=== PATIENT | female | born 1975 | race Caucasian/White ===

== ENCOUNTER 2016-12-15 06:24 | Emergency (ER) | payer OTHER ==
[~2016-12-15] VITALS: Ht 157.5 cm; Wt 96.8 kg
[2016-12-15] MEDS ORDERED: ONDANSETRON 4MG/2ML VIAL (J2405) IV ONE (06:45)
[2016-12-15] MEDS ORDERED: KETOROLAC 30 MG/ML VIAL (J1885) IV ONE (06:45)
[2016-12-15] MEDS ORDERED: NS 1,000 ML IV ONE (06:45)
[2016-12-15 07:00] LABS: BASO # 0.1 K/mm3 (0.0-0.2); BASO % 0.6 % (0.0-1.0); EOS # 0.3 K/mm3 (0.0-0.50); EOS % 2.6 % (0.0-3.0); LARGE UNSTAINED CELL # 0.1 K/mm3 (0.0-0.4); LARGE UNSTAINED CELL % 0.6 % (0.0-4.0); LYMPH # 1.1 K/mm3 (1.5-4.5); LYMPH % 9.2 % (24.0-44.0); MEAN CORPUSCULAR HEMOGLOBIN 31.8 pg (27.0-33.0); MEAN CORPUSCULAR HGB CONC 33.9 g/dl (32.0-36.5); MEAN CORPUSCULAR VOLUME 93.6 fl (80.0-96.0); MONO # 0.4 K/mm3 (0.0-0.8); MONO % 3.7 % (0.0-5.0); NEUTROPHILS % 83.1 % (36.0-66.0); PLATELET COUNT, AUTOMATED 278 k/mm3 (150-450); RED CELL DISTRIBUTION WIDTH 12.7 % (11.5-14.5); WHITE BLOOD COUNT 10.8 K/mm3 (4.0-10.0)
[2016-12-15 07:17] LABS: ALBUMIN 3.8 GM/DL (3.2-5.2); ALBUMIN/GLOBULIN RATIO 0.84 (1.00-1.93); ALKALINE PHOSPHATASE 64 U/L (45-117); ALT/SGPT 26 U/L (12-78); AMYLASE 34 U/L (25-115); ANION GAP 10 MEQ/L (8-16); AST/SGOT 12 U/L (15-37); BILIRUBIN,TOTAL 0.3 MG/DL (0.2-1.0); BLOOD UREA NITROGEN 15 MG/DL (7-18); CALCIUM LEVEL 9.1 MG/DL (8.5-10.1); CARBON DIOXIDE LEVEL 23 MEQ/L (21-32); CHLORIDE LEVEL 105 MEQ/L (98-107); CREATININE FOR GFR 0.75 MG/DL (0.55-1.02); GLOMERULAR FILTRATION RATE > 60.0 (>58); GLUCOSE, FASTING 141 MG/DL (70-105); POTASSIUM SERUM 3.5 MEQ/L (3.5-5.1); SODIUM LEVEL 138 MEQ/L (136-145); TOTAL PROTEIN 8.3 GM/DL (6.4-8.2)
[2016-12-15] MEDS ORDERED: METOCLOPRAMIDE INJ 10MG/2ML VIAL (J2765) IV ONE (07:45)
[2016-12-15] MEDS ORDERED: TRIMETHOBENZAMIDE HCL INJ 200 MG/2 ML VIAL (J3250) IM ONE (09:00)
--- NOTE | 2016-12-15 09:21 | REP ---
RIGHT UPPER QUADRANT ULTRASOUND: 12/15/2016 COMPARISON: CT abdomen pelvis 08/14 1012. CLINICAL HISTORY: Abdominal pain, nausea and vomiting. FINDINGS: The liver is homogeneous, appears mildly enlarged and without focal hepatic mass or biliary dilatation. Gallbladder shows small echogenic mobile stones with shadowing. No abnormal wall thickening or pericholecystic fluid. No sludge. No sonographic Stapleton sign. Common duct is 5.2 mm without a filling defect or dilatation. The visualized pancreas unremarkable. The right kidney is 10.6 x 6.9 x 5.2 cm. IMPRESSION: 1. Mild hepatomegaly without focal hepatic mass, biliary dilatation or adjacent ascites. 2. A few small mobile gallstones with shadowing but no sludge, pericholecystic fluid, mass or sonographic Stapleton sign. 3. Common duct 5.2 mm and normal without a filling defect or dilatation. Pancreas and right kidney unremarkable. Signed by Fab Avilez MD 12/15/2016 09:15 P
[2016-12-15] MEDS ORDERED: ZOFR4TAB3 PO (09:53)
[2016-12-15 10:03] VITALS: BP 147/99
[2016-12-15 10:50] LABS: MICROSCOPIC INDICATED? MAN YES (NO)
[2016-12-15 10:56] LABS: CALCIUM OXALATE CRYSTALS,URINE SMALL AMOUNT /hpf; RBC, URINE 0-1 /hpf (0-3)
[2016-12-15 10:57] LABS: BACTERIA, URINE LARGE AMOUNT; MICROSCOPIC EXAM PERFORMED; SQUAMOUS EPITHELIAL CELL URINE SMALL AMOUNT /hpf (SMALL AMT)
== END 2016-12-15 10:04 | disposition home or self-care (01) ==
LOC: M ED 06:24
DX: K80.20 Calculus of gallbladder without cholecystitis without obstruction (principal); R11.2 Nausea with vomiting, unspecified; R19.7 Diarrhea, unspecified; R10.11 Right upper quadrant pain; Z88.7 Allergy status to serum and vaccine
CPT/HCPCS: 76705; 80053; 81000; 81025; 82150; 83690; 85025; 86140; 96361; 96372; 96374; 96375; 99283; J1885; J2405; J2765; J3250

== ENCOUNTER → 2017-06-03 | Outpatient (CLI) | payer OTHER ==
[2017-06-03 10:18] LABS: HEMATOCRIT 41.9 % (36.0-47.0); MEAN CORPUSCULAR HEMOGLOBIN 30.5 pg (27.0-33.0); MEAN CORPUSCULAR HGB CONC 33.4 g/dl (32.0-36.5); MEAN CORPUSCULAR VOLUME 91.3 fl (80.0-96.0); PLATELET COUNT, AUTOMATED 309 10^3/uL (150-450); RED BLOOD COUNT 4.59 10^6/uL (4.00-5.40); RED CELL DISTRIBUTION WIDTH 12.7 % (11.5-14.5); WHITE BLOOD COUNT 8.1 10^3/uL (4.0-10.0)
[2017-06-03 10:57] LABS: ALBUMIN 3.7 GM/DL (3.2-5.2); ALBUMIN/GLOBULIN RATIO 0.86 (1.00-1.93); ALKALINE PHOSPHATASE 65 U/L (45-117); ALT/SGPT 25 U/L (12-78); ANION GAP 7 MEQ/L (8-16); AST/SGOT 19 U/L (7-37); BILIRUBIN,TOTAL 0.6 MG/DL (0.2-1.0); BLOOD UREA NITROGEN 10 MG/DL (7-18); CALCIUM LEVEL 8.9 MG/DL (8.5-10.1); CARBON DIOXIDE LEVEL 28 MEQ/L (21-32); CHLORIDE LEVEL 103 MEQ/L (98-107); CHOLESTEROL LEVEL 228 MG/DL (<200); CHOLESTEROL RISK RATIO 6.909 (<5); CREATININE FOR GFR 0.63 MG/DL (0.55-1.02); GLOMERULAR FILTRATION RATE > 60.0 (>58); GLUCOSE, FASTING 108 MG/DL (70-105); HDL CHOLESTEROL 33 MG/DL (>40); NON-HDL-C 195 MG/DL; POTASSIUM SERUM 3.9 MEQ/L (3.5-5.1); SODIUM LEVEL 138 MEQ/L (136-145); TRIGLYCERIDES LEVEL 185 MG/DL (<150)
[2017-06-03 10:58] LABS: ESTIMATED AVERAGE GLUCOSE 123 MG/DL (60-110); HEMOGLOBIN A1c 5.9 %
[2017-06-03 10:59] LABS: TOTAL 25(OH) VITAMIN D 28.6 NG/ML (30.0-100.0)
== END ==
LOC: M LAB 09:30
DX: I10 Essential (primary) hypertension (principal); R53.83 Other fatigue; E03.9 Hypothyroidism, unspecified
CPT/HCPCS: 71046

== ENCOUNTER 2017-10-03 10:29 | Emergency (ER) | payer OTHER ==
[2017-10-03] MEDS: NS 1,000 ML IV (10:00)
[2017-10-03] MEDS: METOCLOPRAMIDE INJ 10MG/2ML VIAL (J2765) IV (10:01)
[2017-10-03 11:04] LABS: BASO # 0.1 10^3/uL (0.0-0.2); BASO % 0.5 % (0.0-1.0); EOS # 0.1 10^3/uL (0.0-0.50); EOS % 0.5 % (0.0-3.0); HEMATOCRIT 40.5 % (36.0-47.0); HEMOGLOBIN 13.7 g/dl (12.0-15.5); IMMATURE GRANULOCYTE % 0.5 % (0-3.0); LYMPH # 1.1 10^3/uL (1.5-4.5); LYMPH % 8.3 % (24.0-44.0); MEAN CORPUSCULAR HGB CONC 33.8 g/dl (32.0-36.5); MEAN CORPUSCULAR VOLUME 91.6 fl (80.0-96.0); MONO # 0.6 10^3/uL (0.0-0.8); MONO % 4.4 % (0.0-5.0); NEUTROPHILS # 11.4 10^3/uL (1.8-7.7); NEUTROPHILS % 85.8 % (36.0-66.0); PLATELET COUNT, AUTOMATED 285 10^3/uL (150-450); RED BLOOD COUNT 4.42 10^6/uL (4.00-5.40); RED CELL DISTRIBUTION WIDTH 12.5 % (11.5-14.5); WHITE BLOOD COUNT 13.2 10^3/uL (4.0-10.0)
[2017-10-03] MEDS: TRIMETHOBENZAMIDE HCL INJ 200 MG/2 ML VIAL (J3250) IM (11:12)
[2017-10-03 11:35] LABS: ALBUMIN 3.7 GM/DL (3.2-5.2); ALBUMIN/GLOBULIN RATIO 0.88 (1.00-1.93); ALKALINE PHOSPHATASE 62 U/L (45-117); ALT/SGPT 28 U/L (12-78); ANION GAP 8 MEQ/L (8-16); AST/SGOT 14 U/L (7-37); BILIRUBIN,DIRECT < 0.1 MG/DL (0.0-0.2); BILIRUBIN,TOTAL 0.4 MG/DL (0.2-1.0); BLOOD UREA NITROGEN 14 MG/DL (7-18); CALCIUM LEVEL 8.4 MG/DL (8.5-10.1); CARBON DIOXIDE LEVEL 24 MEQ/L (21-32); CHLORIDE LEVEL 106 MEQ/L (98-107); CREATININE FOR GFR 0.68 MG/DL (0.55-1.30); GLOMERULAR FILTRATION RATE > 60.0 (>58); GLUCOSE, FASTING 146 MG/DL (70-100); LIPASE 81 U/L (73-393); POTASSIUM SERUM 3.4 MEQ/L (3.5-5.1); SODIUM LEVEL 138 MEQ/L (136-145); TOTAL PROTEIN 7.9 GM/DL (6.4-8.2)
[2017-10-03 11:37] LABS: KETONE, URINE AUTO RFX 1+ mg/dL (NEGATIVE); LEUKOCYTE ESTERASE UR AUTO RFX NEGATIVE (NEGATIVE); MUCUS, URINE RFX SMALL (NEGATIVE); NITRITE, URINE AUTO RFX NEGATIVE (NEGATIVE); RBC, URINE AUTO RFX 0 /HPF (0-3); SPECIFIC GRAVITY UR AUTO RFX 1.016 (1.002-1.035); SQUAM EPITHELIAL CELL UR AURFX 1 /HPF (0-6); WBC, URINE AUTO RFX 0 /HPF (0-3)
== END 2017-10-03 12:29 | disposition home or self-care (01) ==
LOC: M ED 10:29
DX: K80.70 Calculus of gallbladder and bile duct without cholecystitis without obstruction (principal); E78.5 Hyperlipidemia, unspecified; Z88.7 Allergy status to serum and vaccine; Z88.8 Allergy status to other drugs, medicaments and biological substances; Z79.899 Other long term (current) drug therapy
CPT/HCPCS: J2765

== ENCOUNTER 2017-11-19 14:04 | Emergency (ER) | payer MEDICAID, OTHER | END 2017-11-19 15:37 | disposition home or self-care (01) | LOC: M ED 14:04 | DX: M54.31 Sciatica, right side (principal); G89.29 Other chronic pain; M51.37 Other intervertebral disc degeneration, lumbosacral region; E78.5 Hyperlipidemia, unspecified; J45.909 Unspecified asthma, uncomplicated; F41.9 Anxiety disorder, unspecified; Z88.8 Allergy status to other drugs, medicaments and biological substances; Z88.7 Allergy status to serum and vaccine; Z79.899 Other long term (current) drug therapy | CPT/HCPCS: 99282 ==

== ENCOUNTER → 2018-02-21 | Outpatient (CLI) | payer OTHER ==
[2018-02-21 08:35] LABS: HEMOGLOBIN 12.6 g/dl (12.0-15.5); MEAN CORPUSCULAR HGB CONC 33.2 g/dl (32.0-36.5); MEAN CORPUSCULAR VOLUME 93.6 fl (80.0-96.0); PLATELET COUNT, AUTOMATED 263 10^3/uL (150-450); RED BLOOD COUNT 4.06 10^6/uL (4.00-5.40); RED CELL DISTRIBUTION WIDTH 12.7 % (11.5-14.5); WHITE BLOOD COUNT 5.1 10^3/uL (4.0-10.0)
[2018-02-21 08:46] LABS: INR 0.95; PROTHROMBIN TIME 12.8 SECONDS (12.1-14.4)
[2018-02-21 08:50] LABS: ESTIMATED AVERAGE GLUCOSE 117 MG/DL (60-110); HEMOGLOBIN A1c 5.7 %
[2018-02-21 09:13] LABS: ALBUMIN 3.4 GM/DL (3.2-5.2); ALBUMIN/GLOBULIN RATIO 0.94 (1.00-1.93); ALKALINE PHOSPHATASE 49 U/L (45-117); ALT/SGPT 26 U/L (12-78); ANION GAP 6 MEQ/L (8-16); AST/SGOT 14 U/L (7-37); BILIRUBIN,TOTAL 0.2 MG/DL (0.2-1.0); BLOOD UREA NITROGEN 12 MG/DL (7-18); CALCIUM LEVEL 8.5 MG/DL (8.5-10.1); CARBON DIOXIDE LEVEL 26 MEQ/L (21-32); CHLORIDE LEVEL 109 MEQ/L (98-107); CHOLESTEROL LEVEL 203 MG/DL (<200); CHOLESTEROL RISK RATIO 6.151 (<5); CREATININE FOR GFR 0.54 MG/DL (0.55-1.30); GLOMERULAR FILTRATION RATE > 60.0 (>58); GLUCOSE, FASTING 89 MG/DL (70-100); HDL CHOLESTEROL 33 MG/DL (>40); LDL CHOLESTEROL 139 MG/DL (<100); NON-HDL-C 170 MG/DL; POTASSIUM SERUM 4.6 MEQ/L (3.5-5.1); SODIUM LEVEL 141 MEQ/L (136-145); THYROID STIMULATING HORMONE 0.948 uIU/ML (0.358-3.740); TRIGLYCERIDES LEVEL 157 MG/DL (<150)
== END ==
LOC: M LAB 07:40
DX: Z01.818 Encounter for other preprocedural examination (principal); I10 Essential (primary) hypertension
CPT/HCPCS: 71046

== ENCOUNTER → 2018-07-20 | Outpatient (CLI) | payer OTHER ==
[~2018-07-20] MED LIST: BACL10TA2 PO; HYDR-3716; NORC7.5T35 PO; OXYB5TAB10; SIMV20TA2; VENTAER INH; XANA0.5T PO; ZOFR4TAB14 PO; xanax PO
[2018-07-20 09:54] LABS: HEMATOCRIT 40.6 % (36.0-47.0); HEMOGLOBIN 13.8 g/dl (12.0-15.5); MEAN CORPUSCULAR HEMOGLOBIN 30.7 pg (27.0-33.0); MEAN CORPUSCULAR VOLUME 90.2 fl (80.0-96.0); PLATELET COUNT, AUTOMATED 283 10^3/uL (150-450); WHITE BLOOD COUNT 6.9 10^3/uL (4.0-10.0)
[2018-07-20 12:42] LABS: HEMOGLOBIN A1c 5.9 %
[2018-07-20 13:13] LABS: ALBUMIN 3.6 GM/DL (3.2-5.2); ALT/SGPT 24 U/L (12-78); BILIRUBIN,TOTAL 0.3 MG/DL (0.2-1.0); BLOOD UREA NITROGEN 12 MG/DL (7-18); CARBON DIOXIDE LEVEL 24 MEQ/L (21-32); CHLORIDE LEVEL 106 MEQ/L (98-107); CHOLESTEROL LEVEL 216 MG/DL (<200); CREATININE FOR GFR 0.57 MG/DL (0.55-1.30); GLOMERULAR FILTRATION RATE > 60.0 (>58); GLUCOSE, FASTING 96 MG/DL (70-100); HDL CHOLESTEROL 36 MG/DL (>40); LDL CHOLESTEROL 154 MG/DL (<100); NON-HDL-C 180 MG/DL; POTASSIUM SERUM 4.2 MEQ/L (3.5-5.1); SODIUM LEVEL 140 MEQ/L (136-145); TOTAL 25(OH) VITAMIN D 26.8 NG/ML (30.0-100.0); TOTAL PROTEIN 7.5 GM/DL (6.4-8.2); TRIGLYCERIDES LEVEL 129 MG/DL (<150)
== END ==
LOC: M LAB 08:51
PROVIDERS: ATTEND Family Medicine
DX: E03.9 Hypothyroidism, unspecified (principal); R53.83 Other fatigue

== ENCOUNTER 2018-09-19 13:51 | Emergency (ER) | payer OTHER ==
[~2018-09-19] VITALS: Ht 157.5 cm; Wt 95.5 kg
[~2018-09-19 13:51] MED LIST changes: +NORC1TAB8 PO; -NORC7.5T35 PO
[2018-09-19] MEDS ORDERED: ONDANSETRON 4MG/2ML VIAL (J2405) IV ONE (14:30)
[2018-09-19 14:42] LABS: BASO # 0.1 10^3/uL (0.0-0.2); BASO % 0.4 % (0.0-1.0); EOS % 0.2 % (0.0-3.0); HEMATOCRIT 42.3 % (36.0-47.0); HEMOGLOBIN 14.4 g/dl (12.0-15.5); LYMPH # 0.8 10^3/uL (1.5-4.5); LYMPH % 6.2 % (24.0-44.0); MEAN CORPUSCULAR HEMOGLOBIN 30.5 pg (27.0-33.0); MEAN CORPUSCULAR VOLUME 89.6 fl (80.0-96.0); MONO # 0.3 10^3/uL (0.0-0.8); MONO % 2.4 % (0.0-5.0); NEUTROPHILS # 11.7 10^3/uL (1.8-7.7); NEUTROPHILS % 90.4 % (36.0-66.0); PLATELET COUNT, AUTOMATED 357 10^3/uL (150-450); RED BLOOD COUNT 4.72 10^6/uL (4.00-5.40); WHITE BLOOD COUNT 12.9 10^3/uL (4.0-10.0)
[2018-09-19] MEDS ORDERED: MORPHINE 4 MG/ML 1ML VIAL/SYRINGE (J2270) IV PRN (14:45)
[2018-09-19] MEDS ORDERED: METOCLOPRAMIDE INJ 10MG/2ML VIAL (J2765) IV ONE (15:00)
[2018-09-19 15:03] LABS: ALBUMIN 3.7 GM/DL (3.2-5.2); ALT/SGPT 25 U/L (12-78); AMYLASE 29 U/L (25-115); BILIRUBIN,DIRECT < 0.1 MG/DL (0.0-0.2); BILIRUBIN,TOTAL 0.5 MG/DL (0.2-1.0); BLOOD UREA NITROGEN 13 MG/DL (7-18); CALCIUM LEVEL 8.9 MG/DL (8.5-10.1); CARBON DIOXIDE LEVEL 23 MEQ/L (21-32); CHLORIDE LEVEL 107 MEQ/L (98-107); GLOMERULAR FILTRATION RATE > 60.0 (>58); GLUCOSE, FASTING 132 MG/DL (70-100); LIPASE 64 U/L (73-393); POTASSIUM SERUM 3.7 MEQ/L (3.5-5.1); SODIUM LEVEL 139 MEQ/L (136-145)
[2018-09-19] MEDS ORDERED: TIGA300C2 PO (16:40)
[2018-09-19] MEDS ORDERED: TRIMETHOBENZAMIDE HCL INJ 200 MG/2 ML VIAL (J3250) IM ONE (16:45)
[2018-09-19 17:17] VITALS: BP 172/85
--- NOTE | 2018-09-20 07:26 | REP ---
RIGHT UPPER QUADRANT ULTRASOUND: Real-time sonographic evaluation of the right upper quadrant performed. Multiple small gallstones are seen in the gallbladder. There is no gallbladder wall thickening or pericholecystic fluid. There is no intrahepatic or extrahepatic biliary dilatation, common bile duct measuring 7 mm, at the upper limits of normal. Liver and pancreas demonstrate no gross mass, pancreas not well seen due to patient body habitus and overlying bowel gas. Right kidney demonstrates no hydronephrosis with normal size 11.6 cm in length. IMPRESSION: Small gallstones in the gallbladder without gallbladder wall thickening or free fluid. Common bile duct upper limits of normal 7 mm. Electronically Signed by Virgilio Littlejohn MD 09/20/2018 05:18 P
--- NOTE | 2018-09-20 07:35 | REP ---
ABDOMINAL SERIES: Supine and erect views of the abdomen demonstrate no free air and no compelling evidence for small bowel obstruction. I do not see significantly dilated small bowel loops. Pelvic phleboliths are seen in the inferior aspect of the right pelvis. There are mild degenerative changes of the lower lumbar spine. An accompanying view of the chest demonstrates mild chronic interstitial changes with no acute infiltrate. IMPRESSION: No free air or obstruction. No evidence of acute infiltrate in the chest. Electronically Signed by Virgilio Littlejohn MD 09/20/2018 05:19 P
== END 2018-09-19 17:43 | disposition home or self-care (01) ==
LOC: M ED 13:51
DX: K80.70 Calculus of gallbladder and bile duct without cholecystitis without obstruction (principal); E78.5 Hyperlipidemia, unspecified; Z88.7 Allergy status to serum and vaccine
CPT/HCPCS: 74021; 76705; 80048; 80076; 82150; 83690; 85025; 96372; 96374; 96375; 99284; J2270; J2405; J2765; J3250

== ENCOUNTER 2018-11-18 08:56 | Emergency (ER) | payer OTHER ==
[~2018-11-18] VITALS: Ht 157.5 cm; Wt 93.8 kg
[~2018-11-18 08:56] MED LIST changes: -SIMV20TA2; +SIMV20TA22; +TIGA300C2 PO
[2018-11-18] MEDS ORDERED: ADDE30TA (09:08)
[2018-11-18] MEDS ORDERED: HYDR-643 (09:08)
[2018-11-18] MEDS ORDERED: REGL10TA6 PO (09:08)
[2018-11-18] MEDS ORDERED: ONDANSETRON 4 MG ORAL DISINTEGRATING TAB (Q0162 PER 1MG) PO ONE (09:30)
[2018-11-18 09:36] LABS: BASO # 0.1 10^3/uL (0.0-0.2); BASO % 1.2 % (0.0-1.0); EOS # 0.3 10^3/uL (0.0-0.50); EOS % 4.1 % (0.0-3.0); HEMATOCRIT 38.8 % (36.0-47.0); HEMOGLOBIN 12.9 g/dl (12.0-15.5); LYMPH # 1.6 10^3/uL (1.5-4.5); LYMPH % 24.2 % (24.0-44.0); MEAN CORPUSCULAR HEMOGLOBIN 30.1 pg (27.0-33.0); MEAN CORPUSCULAR HGB CONC 33.2 g/dl (32.0-36.5); MEAN CORPUSCULAR VOLUME 90.4 fl (80.0-96.0); MONO # 0.7 10^3/uL (0.0-0.8); MONO % 11.1 % (0.0-5.0); NEUTROPHILS # 3.8 10^3/uL (1.8-7.7); NEUTROPHILS % 59.1 % (36.0-66.0); PLATELET COUNT, AUTOMATED 298 10^3/uL (150-450); RED BLOOD COUNT 4.29 10^6/uL (4.00-5.40); WHITE BLOOD COUNT 6.4 10^3/uL (4.0-10.0)
--- NOTE | 2018-11-18 09:54 | REP ---
Clinical: Acute abdominal pain. Technique: Littlejohn scale ultrasound using curved array transducer. Findings: Gallbladder includes mobile gallstone without wall thickening or pericholecystic fluid. No sonographic Stapleton's sign elicited. No biliary ductal dilatation is appreciated and the common bile duct measures 2.1 mm diameter. The liver and pancreas are normal in contour, size, and echogenicity without focal hepatic or pancreatic lesions identified. The right kidney is normal in reniform shape without hydronephrosis and measures 11.6 x 5.7 x 5.1 cm. No ascites. Visualized portions of the abdominal aorta normal. Impression: Cholelithiasis without evidence for acute cholecystitis. Electronically Signed by Rohan Prado MD 11/18/2018 09:46 A
[2018-11-18 10:02] LABS: ALBUMIN 3.5 GM/DL (3.2-5.2); ALT/SGPT 26 U/L (12-78); BILIRUBIN,DIRECT 0.1 MG/DL (0.0-0.2); BILIRUBIN,TOTAL 0.5 MG/DL (0.2-1.0); BLOOD UREA NITROGEN 16 MG/DL (7-18); CALCIUM LEVEL 8.6 MG/DL (8.5-10.1); CARBON DIOXIDE LEVEL 26 MEQ/L (21-32); CHLORIDE LEVEL 104 MEQ/L (98-107); CREATININE FOR GFR 0.77 MG/DL (0.55-1.30); GLOMERULAR FILTRATION RATE > 60.0 (>58); GLUCOSE, FASTING 103 MG/DL (70-100); POTASSIUM SERUM 3.8 MEQ/L (3.5-5.1); SODIUM LEVEL 138 MEQ/L (136-145); TOTAL PROTEIN 7.5 GM/DL (6.4-8.2)
[2018-11-18] MEDS ORDERED: PROMETHAZINE INJ 25 MG/ML VIAL (J2550) IM ONE (10:45)
[2018-11-18 10:56] VITALS: BP 175/81
[2018-11-18] MEDS ORDERED: PROM25TA12 PO (11:22)
== END 2018-11-18 11:33 | disposition home or self-care (01) ==
LOC: M ED 08:56
DX: K80.51 Calculus of bile duct without cholangitis or cholecystitis with obstruction (principal); Z79.899 Other long term (current) drug therapy; Z88.7 Allergy status to serum and vaccine
CPT/HCPCS: 36415; 76705; 80048; 80076; 85025; 96372; 99284; Q0162

== ENCOUNTER 2018-12-27 06:13 | Emergency (ER) | payer OTHER ==
[~2018-12-27] VITALS: Ht 157.5 cm; Wt 88.6 kg
[~2018-12-27 06:13] MED LIST changes: +ADDE30TA; +HYDR-643; +PROM25TA12 PO; +REGL10TA6 PO; +SIMV20TA2; -SIMV20TA22
[2018-12-27] MEDS ORDERED: PROMETHAZINE INJ 25 MG/ML VIAL (J2550) IV ONE (07:00)
[2018-12-27] MEDS ORDERED: NS 1,000 ML IV ONE (07:00)
[2018-12-27 07:53] LABS: BASO # 0.1 10^3/uL (0.0-0.2); BASO % 0.6 % (0.0-1.0); EOS # 0.1 10^3/uL (0.0-0.50); EOS % 1.3 % (0.0-3.0); HEMATOCRIT 39.7 % (36.0-47.0); HEMOGLOBIN 13.1 g/dl (12.0-15.5); LYMPH # 0.9 10^3/uL (1.5-4.5); LYMPH % 8.1 % (24.0-44.0); MEAN CORPUSCULAR HEMOGLOBIN 29.4 pg (27.0-33.0); MONO # 0.3 10^3/uL (0.0-0.8); MONO % 2.9 % (0.0-5.0); NEUTROPHILS # 9.1 10^3/uL (1.8-7.7); NEUTROPHILS % 86.8 % (36.0-66.0); PLATELET COUNT, AUTOMATED 319 10^3/uL (150-450); RED BLOOD COUNT 4.46 10^6/uL (4.00-5.40); WHITE BLOOD COUNT 10.5 10^3/uL (4.0-10.0)
[2018-12-27 08:01] LABS: ALBUMIN 3.7 GM/DL (3.2-5.2); ALT/SGPT 24 U/L (12-78); BILIRUBIN,DIRECT < 0.1 MG/DL (0.0-0.2); BILIRUBIN,TOTAL 0.4 MG/DL (0.2-1.0); BLOOD UREA NITROGEN 14 MG/DL (7-18); CALCIUM LEVEL 8.9 MG/DL (8.5-10.1); CARBON DIOXIDE LEVEL 23 MEQ/L (21-32); CHLORIDE LEVEL 107 MEQ/L (98-107); CREATININE FOR GFR 0.78 MG/DL (0.55-1.30); GLOMERULAR FILTRATION RATE > 60.0 (>58); GLUCOSE, FASTING 134 MG/DL (70-100); LIPASE 64 U/L (73-393); POTASSIUM SERUM 4.6 MEQ/L (3.5-5.1); SODIUM LEVEL 140 MEQ/L (136-145); TOTAL PROTEIN 7.6 GM/DL (6.4-8.2)
--- NOTE | 2018-12-27 08:29 | REP ---
Right upper quadrant sonography: History: History of gallstones. Worsening pain. Comparison study November 18, 2018. Findings: Scanning through right upper quadrant is performed. Scan quality incompleteness were inhibited by patient's inability to complete the exam due to extreme nausea. Echogenic foci are seen within the gallbladder consistent with cholelithiasis. No pericholecystic fluid or obvious gallbladder wall thickening is seen. Common bile duct is at the upper range of normal in size measuring 0.7 cm. Limited views of the pancreas show no abnormality. No focal liver lesion is seen. There is no evidence of ascites. Impression: Somewhat limited exam due to nausea. Cholelithiasis again noted. No gallbladder wall thickening or pericholecystic fluid seen. CBD borderline 0.7 cm. Electronically Signed by Mike Kenney MD 12/27/2018 08:20 A
[2018-12-27] MEDS ORDERED: ONDANSETRON 4MG/2ML VIAL (J2405) IV ONE (08:30)
[2018-12-27] MEDS ORDERED: KETOROLAC 30 MG/ML VIAL (J1885) IV ONE (09:30)
[2018-12-27] MEDS ORDERED: HALOPERIDOL 5 MG/ML VIAL (J1630) IV ONE (09:45)
[2018-12-27] MEDS ORDERED: ZOFR8TAB24 PO (10:59)
[2018-12-27 11:09] VITALS: BP 150/82
== END 2018-12-27 11:17 | disposition home or self-care (01) ==
LOC: M ED 06:13
DX: K80.50 Calculus of bile duct without cholangitis or cholecystitis without obstruction (principal); Z87.59 Personal history of other complications of pregnancy, childbirth and the puerperium; K21.9 Gastro-esophageal reflux disease without esophagitis; F90.8 Attention-deficit hyperactivity disorder, other type; Z79.899 Other long term (current) drug therapy; Z88.7 Allergy status to serum and vaccine
CPT/HCPCS: 76705; 80048; 80076; 83690; 85025; 96361; 96374; 96375; 99284; J1630; J1885; J2405

== ENCOUNTER → 2019-04-01 | Day surgery (SDC) | payer OTHER ==
[~2019-04-01] VITALS: Ht 157.5 cm; Wt 91.6 kg
[~2019-04-01] MED LIST changes: +LR 1,000 ML IV ONE; -SIMV20TA2; +SIMV20TA22; +ZOFR8TAB24 PO
[2019-04-01 11:02] VITALS: BP 141/97
--- NOTE | 2019-04-01 12:42 | ECGEPIP ---
[facility] Test Date: 2019-04-01 Pat Name: ALYSSA MICHEL Department: Room: - Gender: Female Yarrow Gatherer: GOOD : 1975 Requested By: SUZETTE Billingsley Order Number: [id number] Reading MD: Jackelyn France Measurements Intervals [place] Rate: 68 P: 6 DC: 197 QRS: 65 QRSD: 93 T: 3 QT: 402 QTc: 430 Interpretive Statements SINUS RHYTHM LOW VOLT PRWP SIMILAR TO 02/21/18 EXCEPT NEW NSSTTWABN E Electronically Signed on 04-01-2019 12:42:21 EST by Jackelyn France
== END | disposition home or self-care (01) ==
LOC: M SDC 10:22
PROVIDERS: ATTEND Surgery
DX: K80.50 Calculus of bile duct without cholangitis or cholecystitis without obstruction (principal); Z53.9 Procedure and treatment not carried out, unspecified reason

== ENCOUNTER 2019-04-11 07:56 | Day surgery (SDC) | payer OTHER ==
[~2019-04-11] VITALS: Ht 157.5 cm; Wt 89.8 kg
[~2019-04-11 07:56] MED LIST changes: +SIMV20TA2; -SIMV20TA22; +ceFAZolin SOD 2 GM in IV 1 EA IV ONE
[2019-04-11] MEDS ORDERED: ALBUTEROL SULFATE 2.5 MG/0.5 ML INH NEB SOLN As Ordered ONE (09:05)
[2019-04-11] MEDS ORDERED: BUPIVACAINE/EPIN 0.25% 30 ML VIAL As Ordered ONE (09:07)
[2019-04-11] MEDS ORDERED: ALBUTEROL SULFATE 2.5 MG/0.5 ML INH NEB SOLN INH ONE (09:15)
[2019-04-11] MEDS ORDERED: fentaNYL 100 MCG/2 ML INJECTION (J3010) As Ordered ONE ×2 (09:31→10:22)
[2019-04-11] MEDS ORDERED: dexameTHASONE 4 MG/ML 1ML VIAL (J1100) As Ordered ONE (09:31)
[2019-04-11] MEDS ORDERED: LIDOCAINE 2% INJ 100 MG/5 ML SDV (FOR ANES.) As Ordered ONE (09:31)
[2019-04-11] MEDS ORDERED: PROPOFOL 200 MG/20 ML VIAL As Ordered ONE (09:31)
[2019-04-11] MEDS ORDERED: MIDAZOLAM INJ 2 MG/2 ML VIAL (J2250) As Ordered ONE (09:31)
[2019-04-11] MEDS ORDERED: ROCURONIUM BROMIDE 50 MG/5 ML VIAL As Ordered ONE (09:31)
[2019-04-11] MEDS ORDERED: HYDROmorphone HCL 2 MG/ML 1ML VIAL (J1170) As Ordered ONE (09:32)
[2019-04-11] MEDS ORDERED: KETOROLAC 60 MG/2 ML VIAL (J1885) As Ordered ONE (09:44)
[2019-04-11] MEDS ORDERED: SUGAMMADEX SODIUM 500 MG/5 ML VIAL (BRIDION) As Ordered ONE (09:44)
[2019-04-11] MEDS ORDERED: ONDANSETRON 4MG/2ML VIAL (J2405) As Ordered ONE ×2 (09:44→10:22)
[2019-04-11] MEDS ORDERED: hydrALAZINE INJ 20 MG/ML VIAL As Ordered ONE (09:46)
[2019-04-11] MEDS: fentaNYL 100 MCG/2 ML INJECTION (J3010) IV PRN ×4 (10:36→11:10)
[2019-04-11] MEDS ORDERED: NORCO, ANEXSIA 5/325MG TABLET (HYDROcodone/ACETAMINOPHEN) PO PRN (10:45)
[2019-04-11] MEDS ORDERED: PERCOCET 5MG/325MG TAB PO PRN (10:45)
[2019-04-11] MEDS ORDERED: ONDANSETRON 4MG/2ML VIAL (J2405) IV PRN (10:45)
[2019-04-11] MEDS ORDERED: HYDROMORPHONE HCL 0.5 MG/ 0.5 ML SYRINGE (J1170 PER 1) IV PRN (10:45)
[2019-04-11] MEDS ORDERED: LR 1,000 ML IV SCH (10:45)
[2019-04-11] MEDS ORDERED: METOCLOPRAMIDE INJ 10MG/2ML VIAL (J2765) As Ordered ONE (11:03)
[2019-04-11] MEDS ORDERED: METOCLOPRAMIDE INJ 10MG/2ML VIAL (J2765) IV ONE (11:15)
[2019-04-11] MEDS ORDERED: PROMETHAZINE INJ 25 MG/ML VIAL (J2550) As Ordered ONE (11:28)
[2019-04-11] MEDS ORDERED: PROMETHAZINE INJ 25 MG/ML VIAL (J2550) IV PRN ×2 (12:00→12:15)
[2019-04-11] MEDS ORDERED: diphenhydrAMINE INJ 50MG/ML VIAL (J1200) As Ordered ONE (13:22)
[2019-04-11 14:00] VITALS: BP 161/88
[2019-04-11] MEDS ORDERED: diphenhydrAMINE INJ 50MG/ML VIAL (J1200) IV ONE (14:00)
[2019-04-11] MEDS ORDERED: MORPHINE 2 MG/ML 1ML VIAL (J2270) IV ONE (14:00)
--- NOTE | 2019-04-12 09:50 | RO ---
DATE OF PROCEDURE: 04/11/2019 PREOPERATIVE DIAGNOSIS: Symptomatic cholelithiasis. POSTOPERATIVE DIAGNOSIS: Symptomatic cholelithiasis with lower midline incisional hernia. PROCEDURE: Laparoscopic cholecystectomy. SURGEON: Dr. Dickson WORKPLACE RELATIONS ADVISER: None. ANESTHESIA: General. ESTIMATED BLOOD LOSS: 5. COMPLICATIONS: None. INDICATIONS FOR PROCEDURE: The patient is a 43-year-old female, who presents with right upper quadrant pain and found (dictation cut off). Recommendation is to proceed with laparoscopic possible open cholecystectomy. Risks and benefits of the procedure not limited but including bleeding, infection, hernia formation, damage to surrounding structures, need for further surgery were discussed in detail with the patient. Informed consent was obtained and procedure was planned. Immediately in preop, she also mentioned a new onset of a right lower quadrant bulge that she has not really noticed in the past and she wanted me to be aware of it prior to surgery. DESCRIPTION OF PROCEDURE: The patient was brought back to operating room #3 and after sufficient sedation the abdomen was sterilely prepped and draped. Next, a time-out was done to confirm proper patient and proper procedure. Following that a 10 mm incision was made in left upper quadrant, Veress needle inserted and the abdomen was insufflated to 50 mmHg. Next, a 5 mm supraumbilical midline incision made and a 5 mm Optiview port was used to gain access to the abdomen. Once the abdomen was entered, Veress needle site was examined and there were no signs of any injury. Veress needle was then removed and replaced with an 11 mm port. Two more 5 mm ports were then placed in the right upper quadrant. The fundus of the gallbladder was elevated up towards the right shoulder. Cystic duct and cystic artery were carefully dissected free. Once they were both clearly identified, they were both doubly clipped and cut. The cystic duct was wide and had some stones in it. Therefore, it was also ligated with a PDS Endoloop. The gallbladder was then removed from gallbladder fossa using electrocautery. Once the gallbladder was removed, the abdomen was examined to confirm hemostasis. The gallbladder was then placed in a 10 mm Endo Catch bag brought out through the subxiphoid port site. The abdomen was then desufflated. Skin incisions were closed with #4-0 Vicryl subcuticular sutures. The abdomen was cleaned and dried. Steri-Strips, 4 x 4, and tape were applied thus ending procedure.
== END 2019-04-11 14:15 | disposition home or self-care (01) ==
LOC: M SDC 07:56
PROVIDERS: ATTEND Surgery
DX: K81.1 Chronic cholecystitis (principal); K43.2 Incisional hernia without obstruction or gangrene; I10 Essential (primary) hypertension; E78.5 Hyperlipidemia, unspecified; F41.9 Anxiety disorder, unspecified; J45.909 Unspecified asthma, uncomplicated; F12.90 Cannabis use, unspecified, uncomplicated; Z88.7 Allergy status to serum and vaccine; Z88.8 Allergy status to other drugs, medicaments and biological substances; Z79.899 Other long term (current) drug therapy; Z98.51 Tubal ligation status

== ENCOUNTER → 2019-07-19 | Outpatient (CLI) | payer OTHER ==
[~2019-07-19] MED LIST changes: -LR 1,000 ML IV ONE; -SIMV20TA2; +SIMV20TA22; -ceFAZolin SOD 2 GM in IV 1 EA IV ONE
--- NOTE | 2019-07-19 10:13 | REP ---
LUMBOSACRAL SPINE SERIES: Five views of the lumbosacral spine are performed. No compression fracture or malalignment is seen. There is normal lumbar lordosis. There is mild disc space narrowing at L4-5 and L5-S1 with sclerosis at the facets at both of those levels as well as mild spurring. Posterior elements are intact. Metallic clips are seen in the right upper quadrant. IMPRESSION: Mild degenerative changes L4-5 and L5-S1. Electronically Signed by Virgilio Littlejohn MD 07/19/2019 07:51 P
== END ==
LOC: M RAD 08:52 → M LAB 08:52
PROVIDERS: ATTEND Family Medicine
DX: M54.5 Low back pain (principal)

== ENCOUNTER 2019-09-26 00:42 | Emergency (ER) | payer OTHER ==
[~2019-09-26] VITALS: Ht 157.5 cm; Wt 95.5 kg
[2019-09-26 01:23] LABS: BASO % 0.2 % (0.0-1.0); HEMATOCRIT 40.3 % (36.0-47.0); HEMOGLOBIN 13.3 g/dl (12.0-15.5); LYMPH % 8.2 % (24.0-44.0); MEAN CORPUSCULAR HEMOGLOBIN 29.7 pg (27.0-33.0); MONO # 0.3 10^3/uL (0.0-0.8); MONO % 2.5 % (0.0-5.0); NEUTROPHILS # 10.3 10^3/uL (1.5-8.5); NEUTROPHILS % 88.8 % (36.0-66.0); PLATELET COUNT, AUTOMATED 342 10^3/uL (150-450); RED BLOOD COUNT 4.48 10^6/uL (4.00-5.40); WHITE BLOOD COUNT 11.6 10^3/uL (4.0-10.0)
[2019-09-26] MEDS ORDERED: PROMETHAZINE INJ 25 MG/ML VIAL (J2550) IV ONE (01:30)
[2019-09-26 01:53] LABS: ALBUMIN 3.6 GM/DL (3.2-5.2); BILIRUBIN,DIRECT 0.1 MG/DL (0.0-0.2); BILIRUBIN,TOTAL 0.5 MG/DL (0.2-1.0); TOTAL PROTEIN 8.2 GM/DL (6.4-8.2)
[2019-09-26] MEDS ORDERED: PROM25SU PR (02:42)
[2019-09-26 02:53] VITALS: BP 149/79
[2019-09-27] MEDS ORDERED: PROT1TAB2 PO (10:07)
== END 2019-09-26 02:55 | disposition home or self-care (01) ==
LOC: M ED 00:42
DX: R11.10 Vomiting, unspecified (principal); G89.29 Other chronic pain; Z79.899 Other long term (current) drug therapy; Z88.7 Allergy status to serum and vaccine; F12.20 Cannabis dependence, uncomplicated

== ENCOUNTER 2019-09-27 06:53 | Emergency (ER) | payer OTHER ==
[~2019-09-27] VITALS: Ht 157.5 cm; Wt 99.2 kg
[~2019-09-27 06:53] MED LIST changes: +PROM25SU PR
[2019-09-27] MEDS ORDERED: CAPSAICIN 0.025% CR 60 GM TOP ONE ×2 (07:30→08:00)
[2019-09-27] MEDS ORDERED: PROMETHAZINE INJ 25 MG/ML VIAL (J2550) IM ONE (07:30)
[2019-09-27] MEDS ORDERED: ONDANSETRON 4 MG ORAL DISINTEGRATING TAB PO ONE (08:45)
[2019-09-27] MEDS ORDERED: GI COCKTAIL 50ML BTL(HYOSCYAMINE/MAALOX/LIDOCAINE VISCOUS)(1:3:1) PO ONE (08:45)
[2019-09-27] MEDS ORDERED: HALOPERIDOL 5MG/ML VIAL (J1630 PER 1) IV ONE (09:15)
[2019-09-27] MEDS ORDERED: NS 1,000 ML IV ONE (09:15)
[2019-09-27 09:25] LABS: BASO # 0.1 10^3/uL (0.0-0.2); BASO % 0.7 % (0.0-1.0); EOS % 0.2 % (0.0-3.0); HEMATOCRIT 40.6 % (36.0-47.0); LYMPH # 1.2 10^3/uL (1.5-5.0); MEAN CORPUSCULAR HGB CONC 34.5 g/dl (32.0-36.5); MEAN CORPUSCULAR VOLUME 89.8 fl (80.0-96.0); MONO # 0.3 10^3/uL (0.0-0.8); MONO % 3.6 % (0.0-5.0); NEUTROPHILS % 83.2 % (36.0-66.0); PLATELET COUNT, AUTOMATED 332 10^3/uL (150-450); RED BLOOD COUNT 4.52 10^6/uL (4.00-5.40); WHITE BLOOD COUNT 9.6 10^3/uL (4.0-10.0)
[2019-09-27] MEDS ORDERED: PANTOPRAZOLE 40MG VIAL (C9113 PER 1) IV ONE (09:30)
[2019-09-27] MEDS ORDERED: PROT1TAB2 PO (10:07)
[2019-09-27 10:11] VITALS: BP 163/97
== END 2019-09-27 10:12 | disposition home or self-care (01) ==
LOC: M ED 06:53
DX: T40.7X1A Poisoning by cannabis (derivatives), accidental (unintentional), initial encounter (principal); R11.2 Nausea with vomiting, unspecified; K29.70 Gastritis, unspecified, without bleeding; F41.9 Anxiety disorder, unspecified; F90.9 Attention-deficit hyperactivity disorder, unspecified type; Z79.899 Other long term (current) drug therapy
CPT/HCPCS: 80047; 85025; 96372; 96374; 96375; 99284; C9113; J1630; Q0162

== ENCOUNTER 2019-12-05 06:59 | Emergency (ER) | payer OTHER ==
[~2019-12-05] VITALS: Ht 157.5 cm; Wt 99.1 kg
[~2019-12-05 06:59] MED LIST changes: +PROT1TAB2 PO
[2019-12-05] MEDS ORDERED: LISI10TA4 (07:07)
[2019-12-05] MEDS ORDERED: MELO7.5T35 (07:07)
[2019-12-05] MEDS ORDERED: SIMV20TA22 (07:07)
[2019-12-05] MEDS ORDERED: HYDR-3716 (07:07)
[2019-12-05] MEDS ORDERED: METOCLOPRAMIDE INJ 10MG/2ML VIAL (J2765 PER 1) As Ordered ONE (07:28)
[2019-12-05] MEDS ORDERED: METOCLOPRAMIDE INJ 10MG/2ML VIAL (J2765 PER 1) IV ONE (07:45)
[2019-12-05] MEDS ORDERED: NS 1,000 ML IV ONE (07:45)
[2019-12-05 07:52] LABS: BASO # 0.1 10^3/uL (0.0-0.2); BASO % 0.4 % (0.0-1.0); EOS % 0.1 % (0.0-3.0); HEMATOCRIT 39.9 % (36.0-47.0); HEMOGLOBIN 13.1 g/dl (12.0-15.5); LYMPH # 0.9 10^3/uL (1.5-5.0); LYMPH % 6.5 % (24.0-44.0); MEAN CORPUSCULAR HEMOGLOBIN 29.5 pg (27.0-33.0); MEAN CORPUSCULAR HGB CONC 32.8 g/dl (32.0-36.5); MEAN CORPUSCULAR VOLUME 89.9 fl (80.0-96.0); MONO # 0.3 10^3/uL (0.0-0.8); NEUTROPHILS # 12.5 10^3/uL (1.5-8.5); NEUTROPHILS % 90.7 % (36.0-66.0); PLATELET COUNT, AUTOMATED 310 10^3/uL (150-450); RED BLOOD COUNT 4.44 10^6/uL (4.00-5.40); WHITE BLOOD COUNT 13.8 10^3/uL (4.0-10.0)
[2019-12-05] MEDS ORDERED: ONDANSETRON 4MG/2ML VIAL IV ONE (08:15)
[2019-12-05 08:16] LABS: ALBUMIN 3.6 GM/DL (3.2-5.2); BILIRUBIN,DIRECT 0.1 MG/DL (0.0-0.2); BILIRUBIN,TOTAL 0.5 MG/DL (0.2-1.0); TOTAL PROTEIN 7.6 GM/DL (6.4-8.2)
--- NOTE | 2019-12-05 09:21 | REP ---
Clinical: Abdominal pain. Technique: Upright view of the chest with supine and upright views of the abdomen and pelvis. Findings: Frontal upright view of the chest demonstrates no acute cardiopulmonary process or free air below the diaphragm to suspect pneumoperitoneum. Supine and upright views of the abdomen and pelvis demonstrate nonspecific bowel gas pattern without obstruction or perforation. No organomegaly. No abnormal calcifications. Skeletal structures normal for age. Evidence of prior cholecystectomy. Impression: Nonspecific bowel gas pattern. Electronically Signed by Rohan Prado MD 12/05/2019 09:11 A
[2019-12-05] MEDS ORDERED: HALOPERIDOL 5MG/ML VIAL (J1630 PER 1) IV ONE (09:30)
[2019-12-05] MEDS ORDERED: lisinopriL 10 MG TAB PO ONE (09:30)
[2019-12-05] MEDS ORDERED: ONDA4TAB6 PO (10:25)
[2019-12-05 10:35] VITALS: BP 148/98
[2019-12-05 10:48] LABS: AMPHETAMINES LEVEL URINE NEGATIVE (NEGATIVE); BARBITURATES URINE NEGATIVE (NEGATIVE); BENZODIAZEPINES URINE NEGATIVE (NEGATIVE); CANNABINOIDS URINE POSITIVE (NEGATIVE); COCAINE METABOLITE URINE NEGATIVE (NEGATIVE); METHADONE URINE NEGATIVE (NEGATIVE); OPIATES URINE NEGATIVE (NEGATIVE); PHENCYCLIDINE URINE NEGATIVE (NEGATIVE)
== END 2019-12-05 10:36 | disposition home or self-care (01) ==
LOC: M ED 06:59
DX: T40.7X1A Poisoning by cannabis (derivatives), accidental (unintentional), initial encounter (principal); R11.2 Nausea with vomiting, unspecified; Y92.098 Other place in other non-institutional residence as the place of occurrence of the external cause; F41.9 Anxiety disorder, unspecified; Z88.7 Allergy status to serum and vaccine; Z79.899 Other long term (current) drug therapy
CPT/HCPCS: 74021; 80047; 80076; 80307; 83690; 84702; 85025; 96361; 96374; 96375; 99283; J1630; J2405; J2765

== ENCOUNTER 2020-07-14 05:01 | Emergency (ER) | payer OTHER ==
[~2020-07-14] VITALS: Ht 157.5 cm; Wt 95.0 kg
[~2020-07-14 05:01] MED LIST changes: +LISI10TA22; +MELO7.5T35; +ONDA4TAB6 PO
[2020-07-14 05:03] VITALS: BP 164/77
--- OUTSIDE RECORDS SUMMARY | 2020-07-14 05:06 | CCD ---
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 Care Production Manager Name Role Phone Radhas, M Wanda FOOD AND BEVERAGE CASHIER Unavailable Unavailable Fons, M Wanda FOOD AND BEVERAGE CASHIER Unavailable Unavailable Fons, M Wanda FOOD AND BEVERAGE CASHIER Unavailable Unavailable Fons, M Wanda FOOD AND BEVERAGE CASHIER Unavailable Unavailable Fons, M Wanda FOOD AND BEVERAGE CASHIER Unavailable Unavailable Fons, M Wanda FOOD AND BEVERAGE CASHIER Unavailable Unavailable Fons, M Wanda FOOD AND BEVERAGE CASHIER Unavailable Unavailable Fons, M Wanda FOOD AND BEVERAGE CASHIER Unavailable Unavailable Fons, M Wanda FOOD AND BEVERAGE CASHIER Unavailable Unavailable Fons, M Wanda FOOD AND BEVERAGE CASHIER Unavailable Unavailable Fons, M Wanda FOOD AND BEVERAGE CASHIER Unavailable Unavailable Fons, M Wanda FOOD AND BEVERAGE CASHIER Unavailable Unavailable Fons, M Wanda FOOD AND BEVERAGE CASHIER Unavailable Unavailable Fons, M Wanda FOOD AND BEVERAGE CASHIER Unavailable Unavailable Fons, M Wanda FOOD AND BEVERAGE CASHIER Unavailable Unavailable Fons, M Wanda FOOD AND BEVERAGE CASHIER Unavailable Unavailable Fons, M Wanda FOOD AND BEVERAGE CASHIER Unavailable Unavailable Fons, M Wanda FOOD AND BEVERAGE CASHIER Unavailable Unavailable Fons, M Wanda FOOD AND BEVERAGE CASHIER Unavailable Unavailable Fons, M Wanda FOOD AND BEVERAGE CASHIER Unavailable Unavailable Fons, M Wanda FOOD AND BEVERAGE CASHIER Unavailable Unavailable Fons, M Wanda FOOD AND BEVERAGE CASHIER Unavailable Unavailable Fons, M Wanda FOOD AND BEVERAGE CASHIER Unavailable Unavailable Fons, M Wanda FOOD AND BEVERAGE CASHIER Unavailable Unavailable Fons, M Wanda FOOD AND BEVERAGE CASHIER Unavailable Unavailable Fons, M Wanda FOOD AND BEVERAGE CASHIER Unavailable Unavailable Fons, M Wanda FOOD AND BEVERAGE CASHIER Unavailable Unavailable Fons, M Wanda FOOD AND BEVERAGE CASHIER Unavailable Unavailable Fons, M Wanda FOOD AND BEVERAGE CASHIER Unavailable Unavailable Fons, M Wanda FOOD AND BEVERAGE CASHIER Unavailable Unavailable Fons, M Wanda FOOD AND BEVERAGE CASHIER Unavailable Unavailable Fons, M Wanda FOOD AND BEVERAGE CASHIER Unavailable Unavailable Fons, M Wanda FOOD AND BEVERAGE CASHIER Unavailable Unavailable Fons, M Wanda FOOD AND BEVERAGE CASHIER Unavailable Unavailable Fons, M Wanda FOOD AND BEVERAGE CASHIER Unavailable Unavailable Fons, M Wanda FOOD AND BEVERAGE CASHIER Unavailable Unavailable Fons, M Wanda FOOD AND BEVERAGE CASHIER Unavailable Unavailable Fons, M Wanda FOOD AND BEVERAGE CASHIER Unavailable Unavailable Fons, M Wanda FOOD AND BEVERAGE CASHIER Unavailable Unavailable Fons, M Wanda FOOD AND BEVERAGE CASHIER Unavailable Unavailable Fons, M Wanda FOOD AND BEVERAGE CASHIER Unavailable Unavailable Fons, M Wanda FOOD AND BEVERAGE CASHIER Unavailable Unavailable Fons, M Wanda FOOD AND BEVERAGE CASHIER Unavailable Unavailable Fons, M Wanda FOOD AND BEVERAGE CASHIER Unavailable Unavailable Fons, M Wanda FOOD AND BEVERAGE CASHIER Unavailable Unavailable Fons, M Wanda FOOD AND BEVERAGE CASHIER Unavailable Unavailable Fons, M Wanda FOOD AND BEVERAGE CASHIER Unavailable Unavailable Fons, M Wanda FOOD AND BEVERAGE CASHIER Unavailable Unavailable Fons, M Wanda FOOD AND BEVERAGE CASHIER Unavailable Unavailable Fons, M [place] FOOD AND BEVERAGE CASHIER Unavailable Unavailable Fons, M Wanda FOOD AND BEVERAGE CASHIER Unavailable Unavailable Fons, M Wanda FOOD AND BEVERAGE CASHIER Unavailable Unavailable Fons, M Wanda FOOD AND BEVERAGE CASHIER Unavailable Unavailable Fons, M Wanda FOOD AND BEVERAGE CASHIER Unavailable Unavailable Fons, M Wanda FOOD AND BEVERAGE CASHIER Unavailable Unavailable Dille, E Neelam DDS Unavailable Unavailable Dille, E Neelam DDS Unavailable Unavailable Dille, E Neelam DDS Unavailable Unavailable Dille, E Neelam DDS Unavailable Unavailable Re-disclosure Warning The records that you are about to access may contain information from federally-assisted alcohol or drug abuse programs. If such information is present, then the following federally mandated warning applies: This information has been disclosed to you from records protected by federal confidentiality rules (42 CFR part 2). The federal rules prohibit you from making any further disclosure of this information unless further disclosure is expressly permitted by the written consent of the person to whom it pertains or as otherwise permitted by 42 CFR part 2. A general authorization for the release of medical or other information is NOT sufficient for this purpose. The Federal rules restrict any use of the information to criminally investigate or prosecute any alcohol or drug abuse patient.The records that you are about to access may contain highly sensitive health information, the redisclosure of which is protected by Article 27-F of the [facility] Public Health law. If you continue you may have access to information: Regarding HIV / AIDS; Provided by facilities licensed or operated by the [facility] Office of Mental Health; or Provided by the [facility] Office for People With Developmental Disabilities. If such information is present, then the following [facility] mandated warning applies: This information has been disclosed to you from confidential records which are protected by state law. State law prohibits you from making any further disclosure of this information without the specific written consent of the person to whom it pertains, or as otherwise permitted by law. Any unauthorized further disclosure in violation of state law may result in a fine or nursing home sentence or both. A general authorization for the release of medical or other information is NOT sufficient authorization for further disc losure. Family History Family Member Name Family Member Gender Family Member Status Date o f Status Description Data Source(s) Unknown Male Problem MEDENT ([facility]) Unknown Male Problem MED[facility] ([facility] Encounters Encounter Providers Location Date Indications Data Source(s ) Outpatient Attender: Neelam Miranda DDS FP 08/24/2019 09:01:02 P Tammi GALVAN [facility] Outpatient Referrer: Wanda ROMANP 07/21/2019 03:09:00 PM [facility] Insurance Providers Payer name Policy type / Coverage type Policy ID Covered republican ID Covered republican's relationship to miramontes Policy Mir[place]es Plan Information [employer]AN MCDHMO [id number] SP [id number] Managed Care - [facility] Community Plan P [id number] S [id number] Medicaid S [id number] S [id number] [facility]([place]) O [id number] S [id number] [employer] COMMUNITY PLAN MCDHMO [id number] SP [id number] Managed Care - [facility] Community Plan P [id number] S [id number] Managed Care - Community Plan [employer] P [id number] S [id number] MEDICAID [id number] SP [id number] [facility] Health Maintenance Organization (HMO) [id number] Self [id number] [facility] Community Plan Commercial [id number] Self [id number] Managed Care - Community Plan United [employer] P [id number] S [id number] Medicaid S [id number] S [id number] [employer] COMMUNITY PLAN MCDHMO [id number] SP [id number] UNHC COMMUNITY PLAN MCDHMO [id number] SP [id number] D Managed Care [facility] P [id number] S [id number] Medicaid Dental S [id number] S [id number] UNHC COMMUNITY PLAN MCDHMO [id number] SP [id number] HMO BLUE [id number] SP [id number] Managed Care [facility] P [id number] S [id number] Results ID Date Data Source [id number] 05/26/2020 12:00:00 AM EST [facility] Name Value Range Interpretation Code Description Data Yessica rce(s) Supporting Document(s) Carestart Rapid COVID Antigen Test Negative [facility] This lab was reported by Christiano lizama. ID Date Data Source [id number] 05/26/2020 12:00:00 AM EST [facility] Name Value Range Interpretation Code Description Data Yessica rce(s) Supporting Document(s) SARS coronavirus 2 RNA [Presence] in Res piratory specimen by LONNIE with probe detection NEGATIVE [facility] This lab was ordered by Christiano Jones and reported by [facility]. Procedure
[2020-07-14] MEDS ORDERED: TRAM50TA2 (05:12)
--- OUTSIDE RECORDS SUMMARY | 2020-07-14 05:49 | CCD ---
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 Care Photographic Press Screwmaker Name Role Phone Radhas, M Wanda APPLIANCE FIXER Unavailable Unavailable Fons, M Wanda APPLIANCE FIXER Unavailable Unavailable Fons, M Wanda APPLIANCE FIXER Unavailable Unavailable Fons, M Wanda APPLIANCE FIXER Unavailable Unavailable Fons, M Wanda APPLIANCE FIXER Unavailable Unavailable Fons, M Wanda APPLIANCE FIXER Unavailable Unavailable Fons, M Wanda APPLIANCE FIXER Unavailable Unavailable Fons, M Wanda APPLIANCE FIXER Unavailable Unavailable Fons, M Wanda APPLIANCE FIXER Unavailable Unavailable Fons, M Wanda APPLIANCE FIXER Unavailable Unavailable Fons, M Wanda APPLIANCE FIXER Unavailable Unavailable Fons, M Wanda APPLIANCE FIXER Unavailable Unavailable Fons, M Wanda APPLIANCE FIXER Unavailable Unavailable Fons, M Wanda APPLIANCE FIXER Unavailable Unavailable Fons, M Wanda APPLIANCE FIXER Unavailable Unavailable Fons, M Wanda APPLIANCE FIXER Unavailable Unavailable Fons, M Wanda APPLIANCE FIXER Unavailable Unavailable Fons, M Wanda APPLIANCE FIXER Unavailable Unavailable Fons, M Wanda APPLIANCE FIXER Unavailable Unavailable Fons, M Wanda APPLIANCE FIXER Unavailable Unavailable Fons, M Wanda APPLIANCE FIXER Unavailable Unavailable Fons, M Wanda APPLIANCE FIXER Unavailable Unavailable Fons, M Wanda APPLIANCE FIXER Unavailable Unavailable Fons, M Wanda APPLIANCE FIXER Unavailable Unavailable Fons, M Wanda APPLIANCE FIXER Unavailable Unavailable Fons, M Wanda APPLIANCE FIXER Unavailable Unavailable Fons, M Wanda APPLIANCE FIXER Unavailable Unavailable Fons, M Wanda APPLIANCE FIXER Unavailable Unavailable Fons, M Wanda APPLIANCE FIXER Unavailable Unavailable Fons, M Wanda APPLIANCE FIXER Unavailable Unavailable Fons, M Wanda APPLIANCE FIXER Unavailable Unavailable Fons, M Wanda APPLIANCE FIXER Unavailable Unavailable Fons, M Wanda APPLIANCE FIXER Unavailable Unavailable Fons, M Wanda APPLIANCE FIXER Unavailable Unavailable Fons, M Wanda APPLIANCE FIXER Unavailable Unavailable Fons, M Wanda APPLIANCE FIXER Unavailable Unavailable Fons, M Wanda APPLIANCE FIXER Unavailable Unavailable Fons, M Wanda APPLIANCE FIXER Unavailable Unavailable Fons, M Wanda APPLIANCE FIXER Unavailable Unavailable Fons, M Wanda APPLIANCE FIXER Unavailable Unavailable Fons, M Wanda APPLIANCE FIXER Unavailable Unavailable Fons, M Wanda APPLIANCE FIXER Unavailable Unavailable Fons, M Wanda APPLIANCE FIXER Unavailable Unavailable Fons, M Wanda APPLIANCE FIXER Unavailable Unavailable Fons, M Wanda APPLIANCE FIXER Unavailable Unavailable Fons, M Wanda APPLIANCE FIXER Unavailable Unavailable Fons, M Wanda APPLIANCE FIXER Unavailable Unavailable Fons, M Wanda APPLIANCE FIXER Unavailable Unavailable Fons, M Wanda APPLIANCE FIXER Unavailable Unavailable Fons, M Wanda APPLIANCE FIXER Unavailable Unavailable Fons, M Wanda APPLIANCE FIXER Unavailable Unavailable Fons, M Wanda APPLIANCE FIXER Unavailable Unavailable Fons, M Wanda APPLIANCE FIXER Unavailable Unavailable Fons, M Wanda APPLIANCE FIXER Unavailable Unavailable Fons, M Wanda APPLIANCE FIXER Unavailable Unavailable Dille, E Neelam DDS Unavailable [...] is protected by Article 27-F of the [facility] Public Health law. If you continue you may have access to information: Regarding HIV / AIDS; Provided by facilities licensed or operated by the [facility] Office of Mental Health; or Provided by the [facility] Office for People With Developmental Disabilities. If such information is present, then the following [facility] mandated warning applies: This information has [...] law may result in a fine or alf sentence or both. A general authorization for the release of medical or other information is NOT sufficient authorization for further disc losure. Family History Family Member Name Family Member Gender Family Member Status Date o f Status Description Data Source(s) Unknown Male Problem MEDENT ([facility]) Unknown Male Problem MED[facility] ([facility]) Encounters Encounter Providers Location Date Indications Data Source(s ) Outpatient Attender: Neelam Miranda DDS FP 08/24/2019 09:01:02 P Tammi GALVAN [facility] Outpatient Referrer: Wanda ROMANP 07/21/2019 03:09:00 PM [facility] Insurance Providers Payer name Policy type / Coverage type Policy ID Covered alliance party ID Covered alliance party's relationship to miramontes Policy [place] Plan Information [employer] COMMUNITY PLAN MCDHMO [id number] SP [id number] Managed Care - [facility] Community Plan P [id number] S [id number] Medicaid S [id number] S [id number] [facility]([place]ID) O [id number] S [id number] [employer] COMMUNITY PLAN MCDHMO [id number] SP [id number] Managed Care - [facility] Community Plan P [id number] S [id number] Managed Care - Community Plan [employer] P [id number] S [id number] MEDICAID [id number] SP [id number] [facility] Health Maintenance Organization (HMO) [id number] Self [id number] [facility] Community Plan Commercial [id number] Self [id number] Managed Care - Community Plan United [employer] P [id number] S [id number] Medicaid S [id number] S [id number] [employer]HC COMMUNITY PLAN MCDHMO [id number] SP [id number] UNHC COMMUNITY PLAN MCDHMO [id number] SP [id number] D Managed Care [facility] P [id number] S [id number] Medicaid Dental S [id number] S [id number] [employer]HC COMMUNITY PLAN MCDHMO [id number] SP [id number] HMO BLUE [id number] SP [id number] D Managed Care [facility] P [id number] S [id number] Results ID Date Data Source [id number] 05/26/2020 12:00:00 AM EST [facility] Name Value Range Interpretation Code Description Data Ysesica rce(s) Supporting Document(s) Carestart Rapid COVID Antigen Test Negative [facility] This lab was reported by Christiano lizama. ID Date Data Source [id number] 05/26/2020 12:00:00 AM EST [facility] Name Value Range Interpretation Code Description Data Yessica rce(s) Supporting Document(s) SARS coronavirus 2 RNA [Presence] in Res piratory specimen by LONNIE with probe detection NEGATIVE [facility] This lab was ordered by Christiano Jones and reported by [facility]. Procedure
== END 2020-07-14 05:34 | disposition left against medical advice (07) ==
LOC: M ED 05:01
DX: Z53.21 Procedure and treatment not carried out due to patient leaving prior to being seen by health care provider (principal)

== ENCOUNTER 2020-08-26 09:44 | Emergency (ER) | payer OTHER ==
[~2020-08-26] VITALS: Ht 157.5 cm; Wt 97.8 kg
[~2020-08-26 09:44] MED LIST changes: +TRAM50TA2
[2020-08-26] MEDS ORDERED: SUCR1TAB56 (10:00)
[2020-08-26] MEDS ORDERED: ROBA750T4 PO (11:34)
[2020-08-26] MEDS ORDERED: KETOROLAC 60MG 2ML VIAL IM ONE (11:35)
[2020-08-26] MEDS ORDERED: KETO10TAB PO (11:35)
[2020-08-26] MEDS ORDERED: LIDOCAINE 5% (LIDODERM) PATCH TD ONE (11:35)
[2020-08-26] MEDS ORDERED: LIDO5DIS41 TOP (11:36)
[2020-08-26 11:49] VITALS: BP 148/88
[2020-08-26 12:10] VITALS: BP 144/78
[2020-08-26] MEDS ORDERED: **NOTE PATIENT COMMENT** MISC XX SCH (21:00)
== END 2020-08-26 12:17 | disposition home or self-care (01) ==
LOC: M ED 09:44
DX: M54.5 Low back pain (principal); I10 Essential (primary) hypertension; E78.5 Hyperlipidemia, unspecified; J45.909 Unspecified asthma, uncomplicated; F41.9 Anxiety disorder, unspecified; F12.188 Cannabis abuse with other cannabis-induced disorder; F17.200 Nicotine dependence, unspecified, uncomplicated; Z88.7 Allergy status to serum and vaccine; Z79.899 Other long term (current) drug therapy
CPT/HCPCS: 96372; 99283; J1885

== ENCOUNTER → 2020-09-03 | Outpatient (CLI) | payer OTHER ==
[~2020-09-03] MED LIST changes: +KETO10TAB PO; +LIDO5DIS41 TOP; +ROBA750T4 PO; +SUCR1TAB56
--- NOTE | 2020-09-03 16:38 | REP ---
INDICATION: SCIATICA COMPARISON: 08/20/2012 TECHNIQUE: AP, lateral, bilateral oblique, and coned-down views of the lumbar spine. FINDINGS: Alignment and lordosis maintained. Vertebral bodies are intact. No acute fracture/compression injury or subluxation. No obvious spondylolysis or spondylolisthesis. Mild degenerative changes include endplate sclerosis with minimal disc space narrowing at L4-5 and L5-S1 along with mild associated facet hypertrophy. IMPRESSION: Mild degenerative changes at L4-5 and L5-S1 suggested. <Electronically signed by Rohan Prado > 09/03/20 1739
== END ==
LOC: M RAD 16:11
PROVIDERS: ATTEND Family Medicine
DX: M54.30 Sciatica, unspecified side (principal)

== ENCOUNTER 2020-09-05 00:24 | Emergency (ER) | payer OTHER ==
[~2020-09-05] VITALS: Ht 157.5 cm; Wt 95.1 kg
[2020-09-05 03:09] LABS: BASO % 0.3 % (0.0-1.0); EOS % 0.1 % (0.0-3.0); HEMATOCRIT 38.3 % (36.0-47.0); HEMOGLOBIN 12.5 g/dl (12.0-15.5); LYMPH # 0.9 10^3/uL (1.5-5.0); LYMPH % 6.5 % (24.0-44.0); MEAN CORPUSCULAR HEMOGLOBIN 27.8 pg (27.0-33.0); MEAN CORPUSCULAR HGB CONC 32.6 g/dl (32.0-36.5); MEAN CORPUSCULAR VOLUME 85.1 fl (80.0-96.0); MONO # 0.3 10^3/uL (0.0-0.8); MONO % 1.8 % (2.0-8.0); NEUTROPHILS % 90.9 % (36.0-66.0); PLATELET COUNT, AUTOMATED 370 10^3/uL (150-450); WHITE BLOOD COUNT 14.2 10^3/uL (4.0-10.0)
[2020-09-05 03:33] LABS: ALBUMIN 3.9 GM/DL (3.2-5.2); BILIRUBIN,DIRECT 0.1 MG/DL (0.0-0.2); BILIRUBIN,TOTAL 0.5 MG/DL (0.2-1.0); TOTAL PROTEIN 8.5 GM/DL (6.4-8.2)
[2020-09-05] MEDS: NS 1,000 ML IV ONE (04:39)
[2020-09-05] MEDS: HALOPERIDOL 5MG/ML VIAL (J1630 PER 1) IV ONE (04:39)
[2020-09-05 06:21] VITALS: BP 136/78
== END 2020-09-05 06:23 | disposition home or self-care (01) ==
LOC: M ED 00:24
DX: F12.288 Cannabis dependence with other cannabis-induced disorder (principal); R11.10 Vomiting, unspecified; I10 Essential (primary) hypertension; F90.9 Attention-deficit hyperactivity disorder, unspecified type; Z98.890 Other specified postprocedural states; Z88.7 Allergy status to serum and vaccine
CPT/HCPCS: 80047; 80076; 83690; 84702; 85025; 93041; 96374; 99284; J1630

== ENCOUNTER → 2020-09-25 | Outpatient (REF) | payer OTHER ==
[2020-09-25 17:36] LABS: FREE T4 1.09 NG/DL (0.76-1.46); THYROID STIMULATING HORMONE 0.946 uIU/ML (0.358-3.740)
[2020-09-25 17:39] LABS: LUTEINIZING HORMONE 13.1 mIU/mL
[2020-09-25 17:40] LABS: FOLLICLE STIMULATING HORMONE 9.4 mIU/mL
== END ==
LOC: M LAB REF 16:27
PROVIDERS: ATTEND Obstetrics & Gynecology
DX: N92.1 Excessive and frequent menstruation with irregular cycle (principal)

== ENCOUNTER → 2020-12-14 | Outpatient (CLI) | payer OTHER | LOC: M LABSMTC 11:14 | PROVIDERS: ATTEND Anesthesiology | DX: Z01.812 Encounter for preprocedural laboratory examination (principal); Z20.822 Contact with and (suspected) exposure to COVID-19 ==

== ENCOUNTER → 2020-12-14 | Outpatient (CLI) | payer OTHER ==
--- NOTE | 2020-12-15 09:32 | ECGEPIP ---
[facility] Test Date: 2020-12-14 Pat Name: ALYSSA MICHEL Department: Room: - Gender: Female [place]: lana : 1975 Requested By: Rai Cheung Order Number: [id number] Reading MD: Eric Woody Measurements Intervals [place] Rate: 87 P: 27 ID: [id number] QRS: 67 QRSD: 82 T: 5 QT: 376 QTc: 452 Interpretive Statements Normal sinus rhythm Poor R wave progression BORDERLINE LOW VOLTAGE THROUGHOUT Compared to prior tracings in the system. No remarkable changes Electronically Signed on 12-15-2020 9:31:55 EDT by Eric Woody
== END ==
LOC: M EKG 11:53
PROVIDERS: ATTEND Anesthesiology
DX: Z01.812 Encounter for preprocedural laboratory examination (principal); I10 Essential (primary) hypertension

== ENCOUNTER 2020-12-19 06:09 | Day surgery (SDC) | payer OTHER ==
[2020-12-19] VITALS (7 sets, daily range): BP systolic 133–155; BP diastolic 86–99
[~2020-12-19] VITALS: Ht 157.5 cm; Wt 96.1 kg
[~2020-12-19 06:09] MED LIST changes: +ceFAZolin SOD 2 GM in IV 1 EA IV ONE
[2020-12-19] MEDS ORDERED: ceFAZolin 2 GM/D5W 50 ML IV BAG (J0690 PER 500MG) As Ordered ONE (06:29)
[2020-12-19 06:54] LABS: HEMATOCRIT 36.5 % (36.0-47.0); HEMOGLOBIN 11.7 g/dl (12.0-15.5); MEAN CORPUSCULAR HGB CONC 32.1 g/dl (32.0-36.5); MEAN CORPUSCULAR VOLUME 87.3 fl (80.0-96.0); PLATELET COUNT, AUTOMATED 305 10^3/uL (150-450); RED BLOOD COUNT 4.18 10^6/uL (4.00-5.40); WHITE BLOOD COUNT 7.1 10^3/uL (4.0-10.0)
[2020-12-19] MEDS ORDERED: LR 1,000 ML IV ONE (07:10)
[2020-12-19 07:13] LABS: BLOOD UREA NITROGEN 15 MG/DL (7-18); CALCIUM LEVEL 8.7 MG/DL (8.5-10.1); CARBON DIOXIDE LEVEL 28 MEQ/L (21-32); CHLORIDE LEVEL 104 MEQ/L (98-107); CREATININE FOR GFR 0.68 MG/DL (0.55-1.30); GLOMERULAR FILTRATION RATE > 60.0 (>58); GLUCOSE, FASTING 104 MG/DL (70-100); POTASSIUM SERUM 3.7 MEQ/L (3.5-5.1); SODIUM LEVEL 138 MEQ/L (136-145)
[2020-12-19] MEDS ORDERED: SCOPOLAMINE 1MG TRANSDERMAL PATCH TOP ONE (07:15)
[2020-12-19] MEDS ORDERED: FLUORESCEIN 10% (100MG/ML) 5 ML VIAL As Ordered ONE (07:15)
[2020-12-19] MEDS ORDERED: BUPIVACAINE/EPIN 0.25% 30 ML VIAL As Ordered ONE (07:15)
[2020-12-19] MEDS ORDERED: HYDROmorphone HCL 2 MG/ML 1ML VIAL (J1170) As Ordered ONE (08:05)
[2020-12-19] MEDS ORDERED: ONDANSETRON 4MG/2ML VIAL As Ordered ONE (08:05)
[2020-12-19] MEDS ORDERED: fentaNYL 100 MCG/2 ML INJECTION (J3010) As Ordered ONE (08:05)
[2020-12-19] MEDS ORDERED: dexameTHASONE 4 MG/ML 1ML VIAL (J1100 PER 1MG) As Ordered ONE (08:05)
[2020-12-19] MEDS ORDERED: LIDOCAINE 2% 100MG/5ML SDV (FOR ANES.) As Ordered ONE (08:05)
[2020-12-19] MEDS ORDERED: KETOROLAC 60MG 2ML VIAL As Ordered ONE (08:05)
[2020-12-19] MEDS ORDERED: METOCLOPRAMIDE INJ 10MG/2ML VIAL (J2765 PER 1) As Ordered ONE (08:05)
[2020-12-19] MEDS ORDERED: ROCURONIUM BROMIDE 50 MG/5 ML VIAL As Ordered ONE ×2 (08:05→08:06)
[2020-12-19] MEDS ORDERED: propofoL 200 MG/20 ML VIAL As Ordered ONE ×2 (08:05→10:37)
[2020-12-19] MEDS ORDERED: MIDAZOLAM INJ 2MG/2ML VIAL (J2250 PER 1MG) As Ordered ONE (08:05)
[2020-12-19] MEDS ORDERED: SUGAMMADEX SODIUM 500 MG/5 ML VIAL (BRIDION) As Ordered ONE (08:06)
[2020-12-19] MEDS ORDERED: PHENYLephrine 500MCG 5ML (100MCG/ML) SYRINGE As Ordered ONE (08:11)
[2020-12-19] MEDS ORDERED: LABETALOL 100MG/20ML VIAL As Ordered ONE (08:52)
[2020-12-19] MEDS ORDERED: hydrALAZINE 20MG/ML 1ML VIAL (J0360 PER 20MG) As Ordered ONE (08:52)
[2020-12-19] MEDS ORDERED: fentaNYL 100 MCG/2 ML INJECTION (J3010) IV PRN (11:00)
[2020-12-19] MEDS ORDERED: LR 1,000 ML IV SCH (11:00)
[2020-12-19] MEDS ORDERED: ONDANSETRON 4MG/2ML VIAL IV PRN (11:00)
[2020-12-19] MEDS ORDERED: oxyCODONE 5MG TAB PO PRN (11:00)
[2020-12-19] MEDS: HYDROMORPHONE HCL 0.5 MG/ 0.5 ML SYRINGE (J1170 PER 1) IV PRN ×2 (13:56→14:01)
[2020-12-19] MEDS: IBUPROFEN 800 MG TAB PO SCH (18:25)
[2020-12-19] MEDS: PERCOCET 5MG/325MG TAB PO PRN (19:36)
[2020-12-20] MEDS: IBUPROFEN 800 MG TAB PO SCH ×2 (00:16→05:59)
[2020-12-20] MEDS: PERCOCET 5MG/325MG TAB PO PRN ×2 (01:45→08:38)
[2020-12-20 05:59] VITALS: BP 157/103
--- NOTE | 2020-12-20 11:05 | RO ---
OPERATIVE NOTE DATE OF OPERATION: 12/19/2020 INDICATIONS: Susan Styles is a 45-year-old female with history of excessive menstruation and two enlarged fibroid uterus. After extensive counseling the decision was made to proceed with robotic-assisted total hysterectomy, removal of both tubes. PREOPERATIVE DIAGNOSES: 1. Extensive menstruation. 2. Enlarged fibroid uterus. POSTOPERATIVE DIAGNOSES: 1. Extensive menstruation. 2. Enlarged fibroid uterus. 3. Extensive omental and bowel adhesions and adhesions to the lower uterine segment from the bladder. PROCEDURES: 1. Robotic-assisted total hysterectomy. 2. Removal of both tubes. 3. Cystoscopy. 4. Extensive lysis of adhesions. SURGEON: Ayden Randolph DO PRODUCTION SCHEDULER: ANESTHESIA: General. COMPLICATIONS: None. ESTIMATED BLOOD LOSS: 200 mL. FINDINGS: Enlarged fibroid uterus with dense omental bowel and bladder adhesions. Normal appearing ovaries. DESCRIPTION OF PROCEDURE: After obtaining informed consent the patient was taken to the operating room where general anesthesia was found to be adequate. She was then prepped and draped in usual sterile fashion in the dorsal lithotomy position. At this point a Medina catheter was placed in the bladder for drainage. HUMI II uterine manipulator was placed. Attention was then turned to the abdomen where a Veress needle was inserted at the umbilicus and the abdomen was insufflated with CO2 gas to approximately 3.5 liters. We then placed an 8 mm supraumbilical incision for the robotic camera port and then two left 8 mm lateral ports were placed, for robotic arm 1 and the assist port and on the right an 8 mm lateral port was placed for robotic arm 2. At this point, the patient was placed in steep Trendelenburg. The robot was brought to the patient's right side and docked in the usual fashion. After proper docking we then performed targeting test. After passing the targeting test the remaining robotic arm 1 and 2 were then docked. After docking the arms Endo Onelia were placed in robotic arm 1 and bipolar grasper in 2. I then went to the surgical console. I began by performing lysis of adhesions. The bladder, omentum as well as pelvic sidewall were found to be adherent. With series of careful blunt and sharp dissection these adhesions were taken down careful not to injure the bladder or the ureter. After taking down the adhesions and freeing up the adnexa, the Endo Onelia were removed. Vessel sealer was placed and the fallopian tube as well as uteroovarian ligament were transected and cut. This was taken all the way down to the uterosacral ligament on each side. After securing both uterine arteries I then removed the vessel sealer, reintroduced the Endo Onelia and anterior and posterior colpotomy was performed. Given the size of the uterus were not able to remove the uterus through the vagina without bivalving the uterus. Using large curved Dela Cruz scissors the uterus was bivalved and we were able to remove the uterus as well as the fallopian tubes and the fibroids through the vagina. A moistened sponge lap was placed in the vagina to maintain pneumoperitoneum. I then went over again to the surgical console and closed the vaginal cuff using 2-0 V-Loc suture. Pelvis was copiously irrigated with normal saline. 1 mL of fluorescein was given by the anesthesiologist to help with the cystoscopy. I then rescrubbed and went to the patient's side. I retrogradely filled the bladder to 230 mL of fluid. The Medina catheter was removed. The cystoscope was inserted. Bilateral ureteral jets noted, no evidence of any bladder injury noted. At this point the cystoscope was removed. The Medina catheter was placed back in the bladder. I then undocked the robot and the robotic ports were closed using 3-0 Vicryl in a subcuticular fashion. 0.25% Marcaine was placed for postoperative pain, Dermabond placed. The patient tolerated the procedure well. She was then transferred to recovery room in stable condition. cc: [facility]
== END 2020-12-20 10:45 | disposition home or self-care (01) ==
LOC: M SDC 06:09 → M MS5PR 14:20 → M SDC 12-20 10:45
PROVIDERS: ATTEND Obstetrics & Gynecology
DX: D25.9 Leiomyoma of uterus, unspecified (principal); N72 Inflammatory disease of cervix uteri; N85.2 Hypertrophy of uterus; K66.0 Peritoneal adhesions (postprocedural) (postinfection); I10 Essential (primary) hypertension; F90.9 Attention-deficit hyperactivity disorder, unspecified type; E78.00 Pure hypercholesterolemia, unspecified; F41.9 Anxiety disorder, unspecified; J45.909 Unspecified asthma, uncomplicated; R06.83 Snoring; Z87.891 Personal history of nicotine dependence; Z88.7 Allergy status to serum and vaccine; Z79.899 Other long term (current) drug therapy
CPT/HCPCS: 36415; 58571; 80048; 85027; 86850; 86900; 86901; 88307; J0360; J0690; J1100; J1170; J1885; J2250; J2370; J2405; J2765; J3010; S2900

== ENCOUNTER 2021-03-31 09:23 | Emergency (ER) | payer OTHER ==
[~2021-03-31] VITALS: Ht 157.5 cm; Wt 98.9 kg
[~2021-03-31 09:23] MED LIST changes: -ceFAZolin SOD 2 GM in IV 1 EA IV ONE
[2021-03-31] MEDS ORDERED: LISI10TA22 PO (09:28)
--- OUTSIDE RECORDS SUMMARY | 2021-03-31 09:32 | CCD ---
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 Name Role Phone Maring, Waqar PA Unavailable Unavailable Maring, Waqar PA Unavailable Unavailable Maring, Waqar PA Unavailable Unavailable Maring, Waqar PA Unavailable Unavailable Maring, Waqar PA Unavailable Unavailable Maring, Waqar PA Unavailable Unavailable Maring, Waqar PA Unavailable Unavailable Maring, Waqar PA Unavailable Unavailable Maring, Waqar PA Unavailable Unavailable Maring, Waqar PA Unavailable Unavailable Maring, Waqar PA Unavailable Unavailable Maring, Waqar PA Unavailable Unavailable Maring, Waqar PA Unavailable Unavailable Maring, Waqar PA Unavailable Unavailable Maring, Waqar PA Unavailable Unavailable Maring, Waqar PA Unavailable Unavailable Feola, T Vianca PA Unavailable Unavailable Feola, T Vianca PA Unavailable Unavailable Feola, T Vianca PA Unavailable Unavailable Feola, T Vianca PA Unavailable Unavailable Feola, T Vianca PA Unavailable Unavailable Feola, T Vianca PA Unavailable Unavailable Feola, T Vianca PA Unavailable Unavailable Feola, T Vianca PA Unavailable Unavailable Feola, T Vianca PA Unavailable Unavailable Feola, T Vianca PA Unavailable Unavailable Feola, T Vianca PA Unavailable Unavailable Feola, T Vianca PA Unavailable Unavailable Feola, T Vianca PA Unavailable Unavailable Feola, T Vianca PA Unavailable Unavailable Feola, T Vianca PA Unavailable Unavailable Feola, T Vianca PA Unavailable Unavailable Feola, T Vianca PA Unavailable Unavailable Feola, T Vianca PA Unavailable Unavailable Feola, T Vianca PA Unavailable Unavailable Feola, T Vianca PA Unavailable Unavailable Feola, T Vianca PA Unavailable Unavailable Feola, T Vianca PA Unavailable Unavailable Feola, T Vianca PA Unavailable Unavailable Feola, T Vianca PA Unavailable Unavailable Feola, T Vianca PA Unavailable Unavailable Feola, T Vianca PA Unavailable Unavailable Feola, T Vianca PA Unavailable Unavailable Feola, T Vianca PA Unavailable Unavailable Feola, T Vianca PA Unavailable Unavailable Feola, T Vianca PA Unavailable Unavailable Feola, T Vianca PA Unavailable Unavailable Feola, T Vianca PA Unavailable Unavailable Feola, T Vianca PA Unavailable Unavailable Feola, T Vianca PA Unavailable Unavailable Feola, T Vianca PA Unavailable Unavailable Feola, T Vianca PA Unavailable Unavailable Feola, T Vianca PA Unavailable Unavailable Feola, T Vianca PA Unavailable Unavailable Feola, T Vianca PA Unavailable Unavailable Feola, T Vianca PA Unavailable Unavailable Feola, T Vianca PA Unavailable Unavailable Re-disclosure Warning The records that [...] is protected by Article 27-F of the [facility] Public Health law. If you continue you may have access to information: Regarding HIV / AIDS; Provided by facilities licensed or operated by the [facility] Office of Mental Health; or Provided by the [facility] Office for People With Developmental Disabilities. If such information is present, then the following [facility] mandated warning applies: This information has been [...] law may result in a fine or half-way sentence or both. A general authorization for the release of medical or other information is NOT sufficient authorization for further disc losure. Family History Family Member Name Family Member Gender Family Member Status Date o f Status Description Data Source(s) Unknown Male Problem [facility]ENT ([facility]) Unknown Male Problem [facility] ([facility]) Encounters Encounter Providers Location Date Indications Data Source(s ) Outpatient Attender: Waqar SMITH 10/31/19 10:14:44 AM EDT - 10/30/2020 11:17:09 AM EDT [facility] ([facility] ) Outpatient Attender: Vianca SMITH 021 08:34:33 AM EDT - 10/28/2020 09:39:05 AM EDT [facility] ([facility] ) Outpatient Attender: Waqar SMITH 07/14/19 08:21:40 AM EST - 07/14/2020 09:10:33 AM EST [facility] ([facility] ) Medications Medication Brand Name Start Date Product Form Dose Route Admi nistrative Instructions Pharmacy Instructions Status Indications Reaction Description Data Source(s) Amphetamine aspartate 7.5 MG / Amphetami ne Sulfate 7.5 MG / Dextroamphetamine saccharate 7.5 MG / Dextroamphetamine Sulfate 7.5 MG Oral Tablet 30 mg DEXTROAMPHETAMINE/AMPHETAMINE 03/13/2021 12:00:00 AM EDT tablet 60 TAKE ONE TABLET BY MOUTH TWO TIMES A DAY MAXIMUM DAILY DOSE = 2 TAKE ONE TABLET BY MOUTH TWO TIMES A DAY MAXIMUM DAILY DOSE = 2 SOLD: 03/13/2021 [facility] 500 mg 03/13/2021 12:00:00 AM EDT capsule 40 TAKE ONE CAPSULE BY MOUTH FOUR TIMES A DAY TAKE ONE CAPSULE BY MOUTH FOUR TIMES A DAY SOLD: 03/13/2021 [facility] 50 mg 03/13/2021 12:00:00 AM EDT tablet 30 TAKE ONE TABLET BY MOUTH AT BEDTIME MAXIMUM DAILY DOSE = 1 TAKE ONE TABLET BY MOUTH AT BEDTIME MAXI MUM DAILY DOSE = 1 SOLD: 03/13/2021 [facility] Amphetamine aspartate 7.5 MG / Amphetami ne Sulfate 7.5 MG / Dextroamphetamine saccharate 7.5 MG / Dextroamphetamine Sulfate 7.5 MG Oral Tablet 30 mg DEXTROAMPHETAMINE/AMPHETAMINE 02/09/2021 12:00:00 AM EDT tablet 60 TAKE ONE TABLET BY MOUTH TWICE A DAY MAXIMUM DAILY DOSE = TWO TABLETS TAKE ONE TABLET BY MOUTH TWICE A DAY MAXIMUM DAILY DOSE = TWO TABLETS SOLD: 02/11/2021 [facility] 50 mg 02/09/2021 12:00:00 AM EDT tablet 30 TAKE ONE TABLET BY MOUTH AT BEDTIME MAXIMUM DAILY DOSE = ONE TABLET TAKE ONE TABLET BY MOUTH AT BEDTIME MAXIMUM DAILY DOSE = ONE TABLET SOLD: 02/11/2021 [facility] 10 mg 01/30/2021 12:00:00 AM EDT tablet 30 TAKE ONE TABLET BY MOUTH AT BEDTIME MAXIMUM DAILY DOSE = 1 TAKE ONE TABLET BY MOUTH AT BEDTIME MAXI MUM DAILY DOSE = 1 SOLD: 01/30/2021 [facility] 800 mg 01/30/2021 12:00:00 AM EDT tablet 90 TAKE ONE TABLET BY MOUTH THREE TIMES A DAY TAKE ONE TABLET BY MOUTH THREE TIMES A DAY SOLD: 01/30/2021 [facility] 90 mcg/actuation 01/30/2021 12:00:00 AM EDT HFA aerosol inha ler 18 INHALE TWO PUFFS BY MOUTH FOUR TIMES A DAY INHALE TWO PUFFS BY MOUTH FOUR TIMES A DAY SOLD: 01/30/2021 [facility] 800 mg 10/30/2020 12:00:00 AM EDT tablet 15 TAKE ONE TABLET BY MOUTH THREE TIMES A DAY FOR 5 DAYS TAKE ONE TABLET BY MOUTH THREE TIMES A DAY FOR 5 DAYS SOLD: 11/11/2020 [facility] 4 mg 10/28/2020 12:00:00 AM EDT tablet 15 TAKE ONE TABLET BY MOUTH THREE TIMES A DAY FOR 5 DAYS TAKE ONE TABLET BY MOUTH THREE TIMES A DAY FOR 5 DAYS SOLD: 10/28/2020 [facility] 10 mg 10/28/2020 12:00:00 AM EDT tablet 30 TAKE ONE TABLET BY MOUTH THREE TIMES A DAY NEEDED FOR NAUSEA FOR 10 DAYS TAKE ONE TABLET BY MOUTH THREE TIMES A DAY NEEDED FOR NAUSEA FOR 10 DAYS SOLD: 10/28/2020 [facility] 30 mg 10/11/2020 12:00:00 AM EDT tablet 60 TAKE ONE TABLET BY MOUTH TWO TIMES A DAY MAXIMUM DAILY DOSE = 2 TABLETS TAKE ONE TABLET BY MOUTH TWO TIMES A DAY MAXIMUM DAILY DOSE = 2 TABLETS SOLD: 10/11/2020 [facility] 10 mg 09/29/2020 12:00:00 AM EDT tablet 90 TAKE ONE TABLET BY MOUTH EVERY DAY TAKE ONE TABLET BY MOUTH EVERY DAY SOLD: 10/11/2020 [facility] 50 mg 09/29/2020 12:00:00 AM EDT tablet 30 TAKE ONE TABLET BY MOUTH AT BEDTIME MAXIMUM DAILY DOSE = 1 TABLET TAKE ONE TABLET BY MOUTH AT BEDTIME MAXIMUM DAILY DOSE = 1 TABLET SOLD: 10/11/2020 [facility] Insurance Providers Payer name Policy type / Coverage type Policy ID Covered republican ID Covered republican's relationship to miramontes Policy Miramontes Plan Information D Managed Care [facility] P [id number] S [id number] [facility] Community Plan Commercial [id number] Self [id number] Medicaid Dental S [id number] S [id number] Medicaid S [id number] S [id number] Managed Care - Community Plan [facility] P [id number] S [id number] [facility] COMMUNITY PLAN [facility] [id number] SP [id number] Managed Care - [facility] Community Plan P [id number] S [id number] Managed Care - Community Plan [facility] P [id number] S [id number] Managed Care - [facility] Community Plan P [id number] S [id number] [facility] COMMUNITY PLAN [facility] [id number] SP [id number] [facility] Commercial Insurance Co. [id number] Self [id number] Medicaid Medicaid [id number] Self [id number] [facility] O [id number] S [id number] MEDICAID [id number] SP [id number] [facility] Health Maintenance Organization (HMO) [id number] Self [id number] Medicaid S [id number] S [id number] [employer] COMMUNITY PLAN MCDHMO [id number] SP [id number] UN[employer] COMMUNITY PLAN MCDHMO [id number] SP [id number] UN[employer] COMMUNITY PLAN MCDHMO [id number] SP [id number] O BLUE [id number] SP [id number] Managed Care [facility] P [id number] S [id number] [employer] COMMUNITY PLAN MCDHMO [id number] SP [id number] Problems, Conditions, and Diagnoses No Information Surgeries/Procedures No Information Results ID Date Data Source [id number] 12/14/2020 09:55:00 AM EDT [facility] Name Value Range Interpretation Code Description Data Yessica rce(s) Supporting Document(s) SARS-CoV-2 (COVID-19) RNA [Presence] in Respiratory specimen by LONNIE with probe detection Not Detected [facility] This lab was ordered by [facility] and reported by [facility]. ID Date Data Source [id number] 05/26/2020 12:00:00 AM EST [facility] Name Value Range Interpretation Code Description Data Yessica rce(s) Supporting Document(s) Carestart Rapid COVID Antigen Test Negative [facility] This lab was reported by [facility]. ID Date Data Source [id number] 05/26/2020 12:00:00 AM EST [facility] Name Value Range Interpretation Code Description Data Yessica rce(s) Supporting Document(s) SARS coronavirus 2 RNA [Presence] in Res piratory specimen by LONNIE with probe detection NEGATIVE [facility] This lab was ordered by [facility] and reported by [facility]. Procedure Social History No Information
[2021-03-31] MEDS ORDERED: ONDANSETRON 4MG/2ML VIAL IV ONE (09:35)
[2021-03-31] MEDS ORDERED: NS 1,000 ML IV ONE (09:35)
[2021-03-31 09:56] LABS: BASO % 0.3 % (0.0-1.0); HEMATOCRIT 41.5 % (36.0-47.0); HEMOGLOBIN 13.7 g/dl (12.0-15.5); LYMPH # 0.6 10^3/uL (1.5-5.0); LYMPH % 4.3 % (24.0-44.0); MEAN CORPUSCULAR HEMOGLOBIN 28.2 pg (27.0-33.0); MEAN CORPUSCULAR VOLUME 85.6 fl (80.0-96.0); MONO # 0.2 10^3/uL (0.0-0.8); MONO % 1.2 % (2.0-8.0); NEUTROPHILS # 12.8 10^3/uL (1.5-8.5); NEUTROPHILS % 93.9 % (36.0-66.0); PLATELET COUNT, AUTOMATED 350 10^3/uL (150-450); RED BLOOD COUNT 4.85 10^6/uL (4.00-5.40); WHITE BLOOD COUNT 13.6 10^3/uL (4.0-10.0)
[2021-03-31 10:24] LABS: ALBUMIN 3.7 GM/DL (3.2-5.2); ALT/SGPT 24 U/L (12-78); BILIRUBIN,DIRECT 0.1 MG/DL (0.0-0.2); BILIRUBIN,TOTAL 0.6 MG/DL (0.2-1.0); BLOOD UREA NITROGEN 16 MG/DL (7-18); CALCIUM LEVEL 9.3 MG/DL (8.5-10.1); CARBON DIOXIDE LEVEL 21 MEQ/L (21-32); CHLORIDE LEVEL 104 MEQ/L (98-107); GLOMERULAR FILTRATION RATE > 60.0 (>58); GLUCOSE, FASTING 162 MG/DL (70-100); LIPASE 55 U/L (73-393); SODIUM LEVEL 135 MEQ/L (136-145); TOTAL PROTEIN 8.1 GM/DL (6.4-8.2)
--- OUTSIDE RECORDS SUMMARY | 2021-03-31 10:30 | CCD ---
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 Care Management Aide Name Role Phone Maring, Waqar PA Unavailable [...] is protected by Article 27-F of the [facility] Public Health law. If you continue you may have access to information: Regarding HIV / AIDS; Provided by facilities licensed or operated by the [facility] Office of Mental Health; or Provided by the [facility] Office for People With Developmental Disabilities. If such information is present, then the following [facility] mandated warning applies: This information has [...] Description Data Source(s) Unknown Male Problem [facility] ([facility]) Unknown Male Problem [facility] ([facility]) Encounters Encounter Providers Location Date Indications Data Source(s ) Outpatient Attender: Waqar SMITH 10/31/19 10:14:44 AM EDT - 10/30/2020 11:17:09 AM EDT [facility] ([facility] ) Outpatient Attender: Vianca SMITH 021 08:34:33 AM EDT - 10/28/2020 09:39:05 AM EDT [facility] ([facility] ) Outpatient Attender: Waqar SMITH 07/14/19 08:21:40 AM EST - 07/14/2020 09:10:33 AM EST [facility] ([facility] ) Medications Medication Brand Name [...] MOUTH THREE TIMES A DAY SOLD: 01/30/2021 [facility] 90 mcg/actuation 01/30/2021 12:00:00 AM EDT [...] type / Coverage type Policy ID Covered constitution party ID Covered constitution party's relationship to miramontes Policy Miramontes Plan Information D Managed Care [facility] P [id number] S [id number] [facility] Community Plan Commercial [id number] Self [id number] Medicaid S [id number] S [id number] Medicaid Dental S [id number] S [id number] Managed Care - Community Plan [facility] P [id number] S [id number] [facility] COMM[facility] [id number] SP [id number] Managed Care - [facility] Community Plan P [id number] S [id number] Managed Care - Community Plan [facility] P [id number] S [id number] [facility] COMMUNITY PLAN [facility] [id number] SP [id number] Managed Care - [facility] Community Plan P [id number] S [id number] [facility] Commercial Insurance Co. [id number] Self [id number] Medicaid Medicaid [id number] Self [id number] [facility]) O [id number] S [id number] Medicaid S [id number] S [id number] UN COMMUNITY PLAN MCDO [id number] SP [id number] UN COMMUNITY PLAN MCDO [id number] SP [id number] UN COMMUNITY PLAN MCDO [id number] SP [id number] UN COMMUNITY PLAN MCDO [id number] SP [id number] [facility] BLUE [id number] SP [id number] D [facility] [id number] S [id number] MEDICAID [id number] SP [id number] [facility] Health Maintenance Organization (HMO) [id number] Self [id number] Problems, Conditions, and Diagnoses No Information Surgeries/Procedures No Information Results ID Date Data Source [id number] 12/14/2020 09:55:00 AM EDT [facility] Name Value Range Interpretation Code Description Data Yessica rce(s) Supporting Document(s) SARS-CoV-2 (COVID-19) RNA [Presence] in Respiratory specimen by LONNIE with probe detection Not Detected [facility] This lab was ordered by [facility] and reported by [employer]. ID Date Data Source [id number] 05/26/2020 12:00:00 AM EST [facility] Name Value Range Interpretation Code Description Data Yessica rce(s) Supporting Document(s) Carestart Rapid COVID Antigen Test Negative [facility] This lab was reported by [facility]. ID Date Data Source [id number] 05/26/2020 12:00:00 AM EST [facility] Name Value Range Interpretation Code Description Data Yessica rce(s) Supporting Document(s) SARS coronavirus 2 RNA [Presence] in Res piratory specimen by LONNIE with probe detection NEGATIVE [facility] This lab was ordered by Christiano Parikh [place] and reported by [facility]. Procedure Social History No Information
[2021-03-31 10:42] VITALS: BP 139/94
[2021-03-31 12:01] LABS: AMPHETAMINES LEVEL URINE NEGATIVE (NEGATIVE); BARBITURATES URINE NEGATIVE (NEGATIVE); BENZODIAZEPINES URINE NEGATIVE (NEGATIVE); CANNABINOIDS URINE POSITIVE (NEGATIVE); COCAINE METABOLITE URINE NEGATIVE (NEGATIVE); METHADONE URINE NEGATIVE (NEGATIVE); OPIATES URINE NEGATIVE (NEGATIVE); PHENCYCLIDINE URINE NEGATIVE (NEGATIVE)
== END 2021-03-31 10:45 | disposition home or self-care (01) ==
LOC: M ED 09:23
DX: F12.188 Cannabis abuse with other cannabis-induced disorder (principal); I10 Essential (primary) hypertension; E78.5 Hyperlipidemia, unspecified; J45.909 Unspecified asthma, uncomplicated; G89.29 Other chronic pain; M54.50 Low back pain, unspecified; F41.9 Anxiety disorder, unspecified; Z88.7 Allergy status to serum and vaccine; Z79.899 Other long term (current) drug therapy
CPT/HCPCS: 80048; 80076; 80307; 83690; 85025; 96374; 99284; J2405

== ENCOUNTER → 2022-01-30 | Outpatient (CLI) | payer OTHER ==
[~2022-01-30] MED LIST changes: +GASTROGRAFIN SOLUTION 30ML (Q9963) As Ordered ONE; +ISOVUE-370 76% 100ML VIAL As Ordered ONE; +LISI10TA22 PO
== END ==
LOC: M RAD 08:30
PROVIDERS: ATTEND Surgery
DX: K43.0 Incisional hernia with obstruction, without gangrene (principal)
CPT/HCPCS: 74178; Q9963; Q9967

== ENCOUNTER → 2022-04-02 | Outpatient (CLI) | payer OTHER ==
[~2022-04-02] MED LIST changes: -GASTROGRAFIN SOLUTION 30ML (Q9963) As Ordered ONE; -ISOVUE-370 76% 100ML VIAL As Ordered ONE
[2022-04-02 13:04] LABS: HEMATOCRIT 40.6 % (36.0-47.0); HEMOGLOBIN 13.4 g/dl (12.0-15.5); MEAN CORPUSCULAR HEMOGLOBIN 30.7 pg (27.0-33.0); MEAN CORPUSCULAR VOLUME 93.1 fl (80.0-96.0); PLATELET COUNT, AUTOMATED 251 10^3/uL (150-450); RED BLOOD COUNT 4.36 10^6/uL (4.00-5.40); WHITE BLOOD COUNT 7.4 10^3/uL (4.0-10.0)
[2022-04-02 13:26] LABS: INR 1.04; PROTHROMBIN TIME 13.8 SECONDS (12.5-14.5)
[2022-04-02 13:44] LABS: ALBUMIN 3.4 G/DL (3.2-5.2); ALT/SGPT 24 U/L (7.0-40); BILIRUBIN,TOTAL 0.4 MG/DL (0.3-1.2); BLOOD UREA NITROGEN 15 MG/DL (9-23); CALCIUM LEVEL 8.6 MG/DL (8.5-10.1); CARBON DIOXIDE LEVEL 25 MMOL/L (20-31); CHLORIDE LEVEL 105 MMOL/L (98-107); CHOLESTEROL LEVEL 200 MG/DL (<200); CREATININE FOR GFR 0.53 MG/DL (0.55-1.30); GLOMERULAR FILTRATION RATE > 60.0 (>58); GLUCOSE, FASTING 126 MG/DL (60-100); HDL CHOLESTEROL 35.7 MG/DL (>40); LDL CHOLESTEROL 115.5 MG/DL (<100); NON-HDL-C 164 MG/DL; POTASSIUM SERUM 3.9 MMOL/L (3.5-5.1); SODIUM LEVEL 139 MMOL/L (136-145); THYROID STIMULATING HORMONE 1.057 uIU/ML (0.55-4.78); TOTAL PROTEIN 6.6 G/DL (5.7-8.2); TRIGLYCERIDES LEVEL 244 MG/DL (<150)
== END ==
LOC: M RAD 11:34
PROVIDERS: ATTEND Family Medicine
DX: Z01.818 Encounter for other preprocedural examination (principal); I10 Essential (primary) hypertension; M16.0 Bilateral primary osteoarthritis of hip

== ENCOUNTER → 2022-04-23 | Outpatient (CLI) | payer OTHER ==
[~2022-04-23] MED LIST changes: +ALBU8.5H INH
== END ==
LOC: M LABSMTC 10:07
PROVIDERS: ATTEND Anesthesiology
DX: Z01.812 Encounter for preprocedural laboratory examination (principal); Z11.52 Encounter for screening for COVID-19

== ENCOUNTER 2022-04-28 13:11 | Day surgery (SDC) | payer OTHER ==
[~2022-04-28] VITALS: Ht 157.5 cm; Wt 101.6 kg
[~2022-04-28 13:11] MED LIST changes: +ceFAZolin SOD 2 GM in IV 1 EA IV ONE
[2022-04-28] MEDS ORDERED: LR 1,000 ML IV SCH ×2 (13:35→16:40)
[2022-04-28] MEDS ORDERED: ONDANSETRON 4MG 2ML VIAL As Ordered ONE (14:49)
[2022-04-28] MEDS ORDERED: ROCURONIUM BROMIDE 50 MG/5 ML VIAL As Ordered ONE (14:49)
[2022-04-28] MEDS ORDERED: propofoL 200 MG/20 ML VIAL As Ordered ONE (14:49)
[2022-04-28] MEDS ORDERED: LIDOCAINE 2% 100MG/5ML SDV (FOR ANES.) As Ordered ONE (14:49)
[2022-04-28] MEDS ORDERED: SUGAMMADEX SODIUM 500 MG/5 ML VIAL (BRIDION) As Ordered ONE (14:49)
[2022-04-28] MEDS ORDERED: KETOROLAC 60MG 2ML VIAL As Ordered ONE (14:50)
[2022-04-28] MEDS ORDERED: fentaNYL 100 MCG/2 ML INJECTION As Ordered ONE (14:52)
[2022-04-28] MEDS ORDERED: MIDAZOLAM INJ 2MG/2ML VIAL (J2250 PER 1MG) As Ordered ONE (14:53)
[2022-04-28] MEDS ORDERED: SCOPOLAMINE 1MG TRANSDERMAL PATCH TOP ONE (15:00)
[2022-04-28] MEDS ORDERED: BUPIVACAINE/EPIN 0.25% 30ML VIAL As Ordered ONE (15:08)
[2022-04-28] MEDS ORDERED: HYDROmorphone HCL 2MG/ML 1ML VIAL As Ordered ONE (15:51)
[2022-04-28] MEDS ORDERED: hydrALAZINE 20MG/ML 1ML VIAL As Ordered ONE (16:01)
[2022-04-28] MEDS ORDERED: oxyCODONE 5MG TAB PO PRN (16:40)
[2022-04-28] MEDS ORDERED: ONDANSETRON 4MG 2ML VIAL IV PRN (16:40)
[2022-04-28] MEDS ORDERED: fentaNYL 100 MCG/2 ML INJECTION IV PRN (16:40)
[2022-04-28] MEDS ORDERED: HYDROMORPHONE HCL 0.5 MG/ 0.5 ML SYRINGE (J1170 PER 1) IV PRN (16:40)
[2022-04-28] MEDS ORDERED: NORCO, ANEXSIA 5/325MG TABLET (HYDROcodone/ACETAMINOPHEN) PO PRN (17:15)
[2022-04-28] MEDS ORDERED: METOCLOPRAMIDE INJ 10MG/2ML VIAL IV ONE (18:05)
[2022-04-28 19:15] VITALS: BP 148/79
== END 2022-04-28 19:44 | disposition home or self-care (01) ==
LOC: M SDC 13:11
PROVIDERS: ATTEND Surgery
DX: K43.0 Incisional hernia with obstruction, without gangrene (principal); M54.50 Low back pain, unspecified; F41.9 Anxiety disorder, unspecified; I10 Essential (primary) hypertension; F90.9 Attention-deficit hyperactivity disorder, unspecified type; J45.909 Unspecified asthma, uncomplicated; Z79.899 Other long term (current) drug therapy; Z87.891 Personal history of nicotine dependence; Z88.7 Allergy status to serum and vaccine
CPT/HCPCS: 49655; C1781; J0360; J0690; J1100; J1170; J1885; J2250; J2405; J2765; J3010; S2900

== ENCOUNTER → 2022-10-22 | Outpatient (CLI) | payer OTHER ==
[~2022-10-22] MED LIST changes: -ceFAZolin SOD 2 GM in IV 1 EA IV ONE
[2022-10-22 10:06] LABS: HEMATOCRIT 41.7 % (36.0-47.0); HEMOGLOBIN 14.2 g/dl (12.0-15.5); MEAN CORPUSCULAR HEMOGLOBIN 30.8 pg (27.0-33.0); MEAN CORPUSCULAR HGB CONC 34.1 g/dl (32.0-36.5); MEAN CORPUSCULAR VOLUME 90.5 fl (80.0-96.0); PLATELET COUNT, AUTOMATED 242 10^3/uL (150-450); RED BLOOD COUNT 4.61 10^6/uL (4.00-5.40); WHITE BLOOD COUNT 4.6 10^3/uL (4.0-10.0)
[2022-10-22 10:25] LABS: HEMOGLOBIN A1c 5.9 % (4.0-6.0)
[2022-10-22 10:39] LABS: TOTAL IRON BINDING CAPACITY 365 UG/DL (250-425)
[2022-10-22 10:40] LABS: ALBUMIN 3.4 G/DL (3.2-5.2); ALKALINE PHOSPHATASE 70 U/L (46-116); ALT/SGPT 36 U/L (7.0-40); AST/SGOT 14 U/L (<34); BILIRUBIN,TOTAL 0.7 MG/DL (0.3-1.2); BLOOD UREA NITROGEN 14 MG/DL (9-23); CALCIUM LEVEL 8.9 MG/DL (8.5-10.1); CARBON DIOXIDE LEVEL 26 MMOL/L (20-31); CHLORIDE LEVEL 105 MMOL/L (98-107); CHOLESTEROL LEVEL 219 MG/DL (<200); CHOLESTEROL RISK RATIO 6.27 (<5); CREATININE FOR GFR 0.55 MG/DL (0.55-1.30); GLOMERULAR FILTRATION RATE > 60.0 (>58); GLUCOSE, FASTING 94 MG/DL (60-100); HDL CHOLESTEROL 34.9 MG/DL (>40); IRON (FE) 86 UG/DL (50-170); LDL CHOLESTEROL 143.3 MG/DL (<100); NON-HDL-C 184.1 MG/DL; PERCENT SATURATION 23.6 % (13.2-45.0); POTASSIUM SERUM 4.2 MMOL/L (3.5-5.1); SODIUM LEVEL 138 MMOL/L (136-145); TOTAL PROTEIN 6.7 G/DL (5.7-8.2); TRIGLYCERIDES LEVEL 204 MG/DL (<150)
[2022-10-22 10:41] LABS: LUTEINIZING HORMONE 47.5 mIU/ML
[2022-10-22 10:42] LABS: ESTRADIOL 21.4 PG/ML; FOLLICLE STIMULATING HORMONE 50.6 mIU/ML; THYROID STIMULATING HORMONE 2.336 uIU/ML (0.55-4.78); TOTAL 25(OH) VITAMIN D 31.2 NG/ML (20.0-100.0)
== END ==
LOC: M LAB 09:35
PROVIDERS: ATTEND Family Medicine
DX: D64.9 Anemia, unspecified (principal); R53.83 Other fatigue; E03.9 Hypothyroidism, unspecified

== ENCOUNTER → 2022-12-25 | Outpatient (REF) | payer OTHER | LOC: M LAB REF 11:13 | PROVIDERS: ATTEND Physician Assistant | DX: J02.9 Acute pharyngitis, unspecified (principal) ==

== ENCOUNTER → 2023-09-26 | Outpatient (CLI) | payer OTHER ==
[~2023-09-26] MED LIST changes: -OXYB5TAB10; +OXYB5TAB14
== END ==
LOC: M RAD 08:19
PROVIDERS: ATTEND Family Medicine
DX: M54.2 Cervicalgia (principal); M54.50 Low back pain, unspecified; M25.559 Pain in unspecified hip; M47.816 Spondylosis without myelopathy or radiculopathy, lumbar region; M62.830 Muscle spasm of back; M16.9 Osteoarthritis of hip, unspecified

== ENCOUNTER 2024-01-13 15:15 | Outpatient (RCR) | payer OTHER ==
[~2024-01-13 15:15] MED LIST changes: +ONDA-282 PO; -ONDA4TAB6 PO
== END 2024-01-16 ==
LOC: M PT 15:15
PROVIDERS: ATTEND Physician Assistant
DX: M54.50 Low back pain, unspecified (principal); M54.2 Cervicalgia

== ENCOUNTER 2024-01-19 09:06 | Outpatient (RCR) | payer OTHER | END 2024-02-15 | LOC: M PT 09:06 | PROVIDERS: ATTEND Physician Assistant | DX: M54.50 Low back pain, unspecified (principal); M54.2 Cervicalgia ==

== ENCOUNTER 2024-09-13 03:20 | Emergency (ER) | payer OTHER ==
[~2024-09-13] VITALS: Ht 157.5 cm; Wt 106.5 kg
[2024-09-13 03:23] VITALS: BP 184/106; TEMP 97.4; O2SAT 96
== END 2024-09-13 04:08 | disposition left against medical advice (07) ==
LOC: M ED 03:20
DX: Z53.21 Procedure and treatment not carried out due to patient leaving prior to being seen by health care provider (principal)